=== PATIENT | male | born 1940 | race Caucasian/White ===

== ENCOUNTER 2016-04-29 12:44 | Inpatient (IN) | payer OTHER ==
[~2016-04-29] VITALS: Ht 167.6 cm; Wt 73.4 kg
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
[2016-04-29 13:41] LABS: URINE APPEARANCE CLEAR (CLEAR); URINE BILIRUBIN NEG (NEG); URINE COLOR YELLOW; URINE NITRITE NEG (NEG); URINE SPECIFIC GRAVITY 1.014 (1.000-1.030); UROBILINOGEN NEG (NEG)
[2016-04-29 13:46] LABS: MANUAL MICROSCOPIC REQUIRED? NO; REVIEW REQ? NO
[2016-04-29 13:51] LABS: BASO % 0.5 %; BASO ABS # 0.05 K/uL (0-0.2); COMPLETE YES; EOS % 0.5 %; IG% 0.3 %; LYMPH % 8.4 %; LYMPH ABS # 0.86 K/uL (1.2-3.4); MEAN CELL VOLUME 91.5 fL (80-100); MEAN CORPUSCULAR HGB CONC 36.1 g/dl (32-36); MEAN PLATELET VOLUME 10.5 fL (7.4-10.4); MONO % 10.7 %; NEUT % 79.6 %; PLATELET COUNT 242 K/uL (130-400); RED BLOOD COUNT 5.03 M/uL (4.7-6.1); WHITE BLOOD COUNT 10.24 K/uL (4.8-10.8)
[2016-04-29 14:00] LABS: BENZODIAZEPINE, URINE NEG (NEG); COCAINE,URINE NEG (NEG); PHENCYCLIDINE, URINE NEG (NEG)
[2016-04-29 14:08] LABS: BUN/CREATININE RATIO 11.9 (10-20); CALCIUM 9.7 mg/dl (8.5-10.1); CREATININE 0.98 mg/dl (0.60-1.40); MAGNESIUM 2.2 mg/dl (1.8-2.4); POTASSIUM 3.7 mmol/L (3.5-5.1)
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
[2016-04-29 14:19] LABS: PHOSPHORUS 2.2 mg/dl (2.5-4.9); THYROID STIMULATING HORMONE 1.54 uIu/ml (0.300-4.500)
[2016-04-29] MEDS ORDERED: SODIUM CHLORIDE 0.9% 1000ML 1,000 ML IV STA (14:23)
[2016-04-29] MEDS ORDERED: CLONIDINE HCL 0.1 MG TAB PO ONE (14:30)
--- NOTE | 2016-04-29 14:34 | DIAGNOSTIC IMAGING REPORT ---
CHEST 2 VIEWS ROUTINE CLINICAL HISTORY: Psych eval COMPARISON STUDY: No previous studies for comparison. FINDINGS: Lung volumes are normal. No consolidation is identified. There is no evidence of pulmonary edema edema. Cardiac size is normal. Mediastinal contours are normal. IMPRESSION: No acute cardiopulmonary findings. Electronically signed by: Srinath Wright M.D. 04/29/2016 2:32 PM Dictated Date/Time: 04/29/2016 2:31 PM
[2016-04-29 14:45] LABS: LYME DISEASE AB IGG NEG (NEG)
[2016-04-29 14:46] LABS: LYME DISEASE AB IGM NEG (NEG)
[2016-04-29] MEDS ORDERED: ACETAMINOPHEN 325 MG TAB PO PRN (16:00)
[2016-04-29] MEDS ORDERED: ONDANSETRON INJ 2 MG/ML 2 ML VIAL IV PRN (16:00)
[2016-04-29] MEDS ORDERED: ZOLPIDEM TARTRATE 5 MG TAB PO PRN (16:00)
[2016-04-29] MEDS ORDERED: ACETAMINOPHEN IV 100 ML IV PRN (16:00)
[2016-04-29] MEDS ORDERED: LORAZEPAM 2 MG/ML 1 ML VIAL IV PRN (16:00)
[2016-04-29] MEDS ORDERED: DiphenhydrAMINE HCL 50 MG/ML VIAL IV PRN (16:00)
[2016-04-29 17:25] VITALS: BP 207/98; PULSE 89; TEMP 36.5; O2SAT 98
[2016-04-29] MEDS ORDERED: LORAZEPAM INJ 1 MG in SYRINGE 0.5 ML IV PRN (17:30)
[2016-04-29] MEDS ORDERED: HydrALAZINE HCL 20 MG/ML VIAL IV. PRN (17:45)
[2016-04-29 18:48] VITALS: BP 112/65; PULSE 84; O2SAT 95
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
[2016-04-29 22:10] VITALS: BP 112/65; PULSE 84; TEMP 36.5; O2SAT 95; Ht 167.6 cm; Wt 73.4 kg
[2016-04-30] VITALS: O2SAT 95
[2016-04-30 07:02] LABS: BASO % 0.5 %; BASO ABS # 0.04 K/uL (0-0.2); COMPLETE YES; EOS % 2.2 %; HEMATOCRIT 42.2 % (42-52); IG% 0.1 %; LYMPH % 18.5 %; LYMPH ABS # 1.42 K/uL (1.2-3.4); MEAN CELL VOLUME 91.3 fL (80-100); MEAN CORPUSCULAR HGB CONC 33.9 g/dl (32-36); MEAN PLATELET VOLUME 10.5 fL (7.4-10.4); MONO % 13.3 %; NEUT % 65.4 %; PLATELET COUNT 198 K/uL (130-400); RED BLOOD COUNT 4.62 M/uL (4.7-6.1); WHITE BLOOD COUNT 7.67 K/uL (4.8-10.8)
[2016-04-30 07:16] VITALS: BP 160/80; PULSE 73; TEMP 36.4; O2SAT 97
[2016-04-30 07:32] LABS: BUN/CREATININE RATIO 13.3 (10-20); CALCIUM 8.6 mg/dl (8.5-10.1); CREATININE 0.84 mg/dl (0.60-1.40); MAGNESIUM 2.3 mg/dl (1.8-2.4); POTASSIUM 3.4 mmol/L (3.5-5.1)
[2016-04-30] MEDS ORDERED: POTASSIUM CHLORIDE 10 MEQ TABCR PO STA (07:51)
[2016-04-30] MEDS ORDERED: INFLUENZA ADMINISTRATION CHARGE ONE (08:00)
[2016-04-30] MEDS ORDERED: INFLUENZA VIRUS QUAD VACCINE 0.5 ML SYR IM. ONE (08:00)
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
[2016-04-30 08:47] VITALS: BP 125/66; PULSE 94
[2016-04-30 12:02] VITALS: BP 127/70; PULSE 89; O2SAT 98
--- NOTE | 2016-04-30 14:34 | Psychiatric Progress Notes ---
Psychiatric Progress Note Date of Service Apr 30, 2016. Notes consult dictated Dx: unspecified psychosis; r/o delirium vs underling major neurocognitive disorder A/P: - pt actively hallucinating (complex AH w/ associated paranoid and illogical delusions) - insight/judgement presently impaired. presently lack capacity to make his own medical decisions 2/2 psychosis and cognitive impairment. surrogate decision maker needed. unclear if he is likely to regain capacity. baseline uncertain at present - h/o brain injury w/ evidence of pathology on CT. 2/2 late onset psychosis in this setting, will order bedside EEG to try to r/o temporal lobe seizures as nidus fo psychosis - scored only 1 pt on minicog indicating likely cognitive impairment. visuospatial deficit and construction apraxia evident (executive dysfunction) which suggests cortical dysfunction (possible SDAT given age). - will d/c ambien 2/2 deliriogenic potential - please minimize use of ativan prn - no si/hi or agitation but would consider sitter for now as he is at risk for behavior driven by hallucinations/delusions - start risperdal 0.25mg now and qhs for psychosis acutely - may need dispo to geriatric psychiatric unit pending EEG results and response to risperdal - will need to assess safety of home environment prior to his return. unclear if he is living alone (as he states) or w/ brother as previously reported - will follow Addendum: liaison nurse spoke with daughter and reviewed med recs and possibility of psychiatric inpatient tx and she verbalized consent. i attempted to reach Shahrzad at [phone] but was unable to reach her at 16:20 on 04/30/16
[2016-04-30 15:53] VITALS: BP 132/72; PULSE 82; TEMP 36.5; O2SAT 96
[2016-04-30] MEDS ORDERED: RISPERIDONE 0.5 MG TAB PO ONE (17:00)
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
[2016-04-30] MEDS ORDERED: RISPERIDONE 0.5 MG TAB PO SCH (21:00)
[2016-05-01 06:18] LABS: BASO % 0.4 %; BASO ABS # 0.03 K/uL (0-0.2); COMPLETE YES; EOS % 2.9 %; HEMATOCRIT 40.4 % (42-52); IG% 0.1 %; LYMPH % 20.8 %; LYMPH ABS # 1.42 K/uL (1.2-3.4); MEAN CELL VOLUME 91.6 fL (80-100); MEAN CORPUSCULAR HEMOGLOBIN 31.7 pg (25-34); MEAN CORPUSCULAR HGB CONC 34.7 g/dl (32-36); MEAN PLATELET VOLUME 10.4 fL (7.4-10.4); MONO % 12.7 %; NEUT % 63.1 %; PLATELET COUNT 185 K/uL (130-400); RED BLOOD COUNT 4.41 M/uL (4.7-6.1); WHITE BLOOD COUNT 6.83 K/uL (4.8-10.8)
[2016-05-01 06:26] LABS: ESTIMATED AVERAGE GLUCOSE 97 mg/dl; HA1C FLAG Normal (Normal)
[2016-05-01 06:51] LABS: CALCIUM 8.4 mg/dl (8.5-10.1); CREATININE 0.94 mg/dl (0.60-1.40); MAGNESIUM 2.4 mg/dl (1.8-2.4); POTASSIUM 3.6 mmol/L (3.5-5.1)
[2016-05-01 06:54] LABS: CHOLESTEROL/HDL RATIO 2.3
[2016-05-01 07:11] VITALS: BP 128/76; PULSE 81; TEMP 36.7; O2SAT 97
[2016-05-01] MEDS: LISINOPRIL 2.5 MG TAB PO SCH (07:52)
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
--- NOTE | 2016-05-01 10:46 | EEG Procedure Note ---
EEG Procedure Note Date of Service May 01, 2016. Start / End Times Start Time: 9:28 AM End Time: 9:48 AM Referring Physician Honorio Nazario History This is a 75-year-old male with change in mental status and sudden onset of psychosis. EEG for further evaluation of altered mental status and rule out seizure etiology. Home Medication List No Active Prescriptions or Reported Meds Inpatient Medication List Current Inpatient Medications Medications (Trade) Dose Ordered Sig/Sada Route Start Time Stop Time Status Last Admin Dose Admin Acetaminophen (Tylenol Tab) 650 mg Q4H PRN PO 04/29/16 16:00 05/29/16 15:59 Ondansetron HCl (Zofran Inj) 4 mg Q6H PRN IV 04/29/16 16:00 05/29/16 15:59 Diphenhydramine HCl 50 mg 50 mg Q6H PRN IV 04/29/16 16:00 05/29/16 15:59 Acetaminophen (Ofirmev Iv) 100 ml @ 400 mls/hr Q8H PRN IV 04/29/16 16:00 05/29/16 15:59 Lorazepam 1 mg 1 mg Q4H PRN IV 04/29/16 16:00 05/29/16 15:59 Lorazepam/Syringe (Ativan Inj/ Syringe) 1 ml @ 1 mls/min Q4H PRN IV 04/29/16 17:30 05/29/16 17:29 04/29/16 17:58 1 MLS/MIN Hydralazine HCl (HydrALAZINE INJ) 10 mg Q4H PRN IV. 04/29/16 17:45 05/29/16 17:44 Lisinopril (Zestril Tab) 2.5 mg QAM PO 05/01/16 08:00 05/31/16 07:59 05/01/16 07:52 2.5 MG Risperidone (Risperdal Tab) 0.5 mg HS PO 05/01/16 21:00 05/31/16 20:59 Description This is a 21 electrode EEG with a single channel dedicated to limited EKG. The electrodes were placed in accordance with the International 10-20 system. At the start of the recording the patient was in an awake state. Background was well organized and composed of symmetric mixed alpha and beta frequencies. There was a symmetric well-formed moderate amplitude 9-10 Hz posterior dominant rhythm that was reactive to eye opening and closure. Hyperventilation was not done. Intermittent photic stimulation at various frequencies produced no abnormalities. There was no state changes or sleep transients. Interpretation This is a normal awake only routine EEG. There was no electrographic seizures or epileptiform discharges. Clinical Correlation A normal EEG does not rule out epilepsy if there is a strong clinical suspicion.
[2016-05-01] MEDS ORDERED: RISP0.5T4 PO (14:00)
--- NOTE | 2016-05-01 14:03 | Discharge Instructions ---
Discharge Instructions Admission Reason for Admission: Acute Paranoia; Auditory Hallucinations Discharge Discharge Diagnosis / Problem: Paranoid psychosis, delusional behavior Discharge Goals Goal(s): Improve function, Improve disease control Activity Recommendations Activity Limitations: resume your previous activity Lifting Limitations: none Exercise/Sports Limitations: as tolerated Shower/Bathe: no limitations . Instructions / Follow-Up Instructions / Follow-Up Inpatient psychiatry Current Hospital Diet Patient's current hospital diet: Regular Diet, AHA Diet (Heart Healthy) Discharge Diet Recommended Diet: Regular Diet Procedures Procedures Performed: EEG - normal Pending Studies Studies pending at discharge: no Laboratory Results Hemoglobin A1c Test 04/30/16 06:02 Range/Units Estimated Average Glucose 97 mg/dl Hemoglobin A1c 5.0 4.5-5.6 % Lipid Panel Test 05/01/16 05:45 Range/Units Triglycerides Level 79 0-150 mg/dl Cholesterol Level 177 0-200 mg/dl HDL Cholesterol 77 mg/dl Cholesterol/HDL Ratio 2.3 LDL Cholesterol, Calculated 84 mg/dl Medical Emergencies . Who to Call and When: Medical Emergencies: If at any time you feel your situation is an emergency, please call 911 immediately. . Non-Emergent Contact Non-Emergency issues call your: Primary Care Provider Call Non-Emergent contact if: you have any medication questions . . "Provider Documentation" section prepared by Asif Powell. VTE Core Measure Inpt VTE Proph given/why not?: SCD's
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
[2016-05-01 14:13] VITALS: BP_SYST 116; BP_SYST 128; BP_DIAS 73; BP_DIAS 76; PULSE 78; PULSE 81; TEMP 36.5; TEMP 36.7; O2SAT 97; O2SAT 99
[2016-05-01] MEDS ORDERED: RISPERIDONE 0.5 MG TAB PO SCH (21:00)
[2016-05-01 23:20] VITALS: BP 148/78; PULSE 79; TEMP 36.4; O2SAT 97
[2016-05-02 06:22] LABS: BASO % 0.4 %; BASO ABS # 0.03 K/uL (0-0.2); COMPLETE YES; EOS % 2.7 %; HEMATOCRIT 39.9 % (42-52); IG% 0.3 %; LYMPH % 13.4 %; LYMPH ABS # 0.95 K/uL (1.2-3.4); MEAN CELL VOLUME 92.4 fL (80-100); MEAN CORPUSCULAR HEMOGLOBIN 32.2 pg (25-34); MEAN CORPUSCULAR HGB CONC 34.8 g/dl (32-36); MEAN PLATELET VOLUME 10.1 fL (7.4-10.4); MONO % 11.8 %; NEUT % 71.4 %; PLATELET COUNT 179 K/uL (130-400); RED BLOOD COUNT 4.32 M/uL (4.7-6.1); WHITE BLOOD COUNT 7.09 K/uL (4.8-10.8)
[2016-05-02 06:55] LABS: CALCIUM 8.6 mg/dl (8.5-10.1); CREATININE 0.83 mg/dl (0.60-1.40); MAGNESIUM 2.3 mg/dl (1.8-2.4); POTASSIUM 3.5 mmol/L (3.5-5.1)
[2016-05-02 07:06] VITALS: BP 116/73; PULSE 78; TEMP 36.5; O2SAT 99
[2016-05-02] MEDS: LISINOPRIL 2.5 MG TAB PO SCH (07:57)
== END 2016-05-02 12:00 | DRG 885 ==
LOC: ENRESERVDT → ENRESERVTM → C.EDB 12:45 → C.4E 15:56
PROVIDERS: ADMIT Hospitalist; ATTEND Internal Medicine
DX: F22 Delusional disorders (principal); R03.0 Elevated blood-pressure reading, without diagnosis of hypertension; Z87.828 Personal history of other (healed) physical injury and trauma

== ENCOUNTER 2016-07-14 18:21 | Emergency (ER) | payer OTHER ==
[~2016-07-14] VITALS: Ht 167.6 cm; Wt 69.4 kg
[~2016-07-14 18:21] MED LIST: RISP0.5T4 PO
[2016-07-14 18:24] VITALS: TEMP 36.9; Ht 167.6 cm; Wt 69.4 kg
[2016-07-14] MEDS ORDERED: FAMO20TA11 PO (18:31)
[2016-07-14 18:55] LABS: MANUAL MICROSCOPIC REQUIRED? NO; REVIEW REQ? NO; URINE APPEARANCE CLEAR (CLEAR); URINE COLOR DK YELLOW; URINE NITRITE NEG (NEG); URINE PH 5.5 (4.5-7.5); URINE SPECIFIC GRAVITY 1.032 (1.000-1.030); UROBILINOGEN NEG (NEG)
[2016-07-14 18:57] LABS: URINE BILIRUBIN NEG (NEG)
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
[2016-07-14 20:06] LABS: ACETAMINOPHEN < 2 ug/ml (10-30)
[2016-07-14 20:23] LABS: BASO % 0.4 %; BASO ABS # 0.03 K/uL (0-0.2); COMPLETE YES; EOS % 3.5 %; IG% 0.3 %; LYMPH % 19.2 %; LYMPH ABS # 1.39 K/uL (1.2-3.4); MEAN CELL VOLUME 90.5 fL (80-100); MEAN CORPUSCULAR HEMOGLOBIN 32.2 pg (25-34); MEAN CORPUSCULAR HGB CONC 35.6 g/dl (32-36); MEAN PLATELET VOLUME 10.2 fL (7.4-10.4); MONO % 11.9 %; NEUT % 64.7 %; PLATELET COUNT 176 K/uL (130-400); RED BLOOD COUNT 3.98 M/uL (4.7-6.1); WHITE BLOOD COUNT 7.23 K/uL (4.8-10.8)
[2016-07-14 20:32] LABS: INR 1.1 (0.9-1.1)
[2016-07-14 20:42] LABS: BLOOD UREA NITROGEN 25 mg/dl (7-18); BUN/CREATININE RATIO 20.4 (10-20); CALCIUM 8.5 mg/dl (8.5-10.1); CARBON DIOXIDE 25 mmol/L (21-32); CHLORIDE 111 mmol/L (98-107); GLUCOSE 107 mg/dl (70-99); POTASSIUM 3.5 mmol/L (3.5-5.1); SODIUM 144 mmol/L (136-145)
[2016-07-14 20:53] LABS: ALKALINE PHOSPHATASE 72 U/L (45-117); ALT/SGPT 21 U/L (12-78); AST/SGOT 21 U/L (15-37)
[2016-07-14 21:51] LABS: BENZODIAZEPINE, URINE NEG (NEG); COCAINE,URINE NEG (NEG); PHENCYCLIDINE, URINE NEG (NEG)
[2016-07-14] MEDS ORDERED: HALOPERIDOL LACTATE 5 MG/ML 1 ML VIAL ONE (22:07)
[2016-07-14] MEDS ORDERED: LORAZEPAM 2 MG/ML 1 ML VIAL ONE (22:07)
[2016-07-14] MEDS ORDERED: LORAZEPAM 2 MG/ML 1 ML VIAL IM STA (22:09)
[2016-07-14] MEDS ORDERED: HALOPERIDOL LACTATE 5 MG/ML 1 ML VIAL IM STA (22:09)
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
[2016-07-15 00:17] VITALS: BP 136/56; PULSE 55; O2SAT 97
== END 2016-07-15 00:53 ==
LOC: C.EDB 18:22 → C.EDA 07-15 00:53
DX: F29 Unspecified psychosis not due to a substance or known physiological condition (principal); D64.9 Anemia, unspecified; Z87.891 Personal history of nicotine dependence

== ENCOUNTER 2017-03-11 09:15 | Inpatient (IN) | payer OTHER ==
[~2017-03-11] VITALS: Ht 167.6 cm; Wt 60.5 kg
[~2017-03-11 09:15] MED LIST changes: +FAMO20TA11 PO; -RISP0.5T4 PO
[2017-03-11] MEDS ORDERED: CYAN500T13 PO (10:03)
[2017-03-11] MEDS ORDERED: RISP4TAB7 PO (10:03)
[2017-03-11] MEDS ORDERED: MGCL40 PO (10:03)
[2017-03-11] MEDS ORDERED: SERT50TA PO (10:03)
[2017-03-11] MEDS ORDERED: CHOL1CAP57 PO (10:03)
[2017-03-11] MEDS ORDERED: ACET-1311 PO (10:03)
[2017-03-11 10:07] LABS: HEMATOCRIT 38.6 % (42-52); MEAN CELL VOLUME 90.2 fL (80-100); MEAN CORPUSCULAR HEMOGLOBIN 30.4 pg (25-34); MEAN CORPUSCULAR HGB CONC 33.7 g/dl (32-36); PLATELET COUNT 174 K/uL (130-400); RED BLOOD COUNT 4.28 M/uL (4.7-6.1); WHITE BLOOD COUNT 14.11 K/uL (4.8-10.8)
[2017-03-11 10:24] LABS: CALCIUM 9.4 mg/dl (8.5-10.1); CREATININE 1.26 mg/dl (0.60-1.40); POTASSIUM 3.8 mmol/L (3.5-5.1)
--- NOTE | 2017-03-11 10:27 | DIAGNOSTIC IMAGING REPORT ---
CT SCAN OF THE ABDOMEN AND PELVIS WITHOUT CONTRAST CLINICAL HISTORY: Abdominal pain and diarrhea COMPARISON STUDY: No previous studies for comparison. TECHNIQUE: CT scan of the abdomen and pelvis was performed from the lung bases to the proximal femurs. Images are reviewed in the axial, sagittal, and coronal planes. IV contrast was not administered for this examination. A dose lowering technique was utilized adhering to the principles of ALARA. CT DOSE: 422.72 mGy.cm FINDINGS: Lower chest: There are mild basilar atelectatic changes. There is a minimal pericardial effusion. Liver: There are 3 low-density hepatic masses measuring 17 mm, 25 mm, and 17 mm respectively. These approach water attenuation likely represent cysts. Gallbladder: Unremarkable. Spleen: Normal in size and attenuation. Pancreas: Unremarkable. Adrenal glands: There is mild bilateral adrenal gland thickening Kidneys: There are bilateral punctate intrarenal calculi. There is no hydronephrosis. No ureteral calculi are visualized. There is a 12 mm hyperdense right renal mass likely representing a hyperdense cyst. Bowel: There is a small hiatal hernia. There are no transition zones indicate bowel obstruction. The appendix is surgically absent. There is colonic interposition. There is no acute diverticulitis. There is fecal retention. The rectum is distended measuring 7.9 cm. Peritoneum: There is no intraperitoneal free air or abdominal ascites. Vasculature: Atheromatous changes are present within the aorta and iliac vessels. There is calcified mural thrombus within the abdominal aorta versus a small short segment chronic dissection. Adenopathy: None. Pelvic viscera: The bladder, and pelvic viscera are unremarkable. Skeletal structures: No destructive osseous lesions are seen. IMPRESSION: 1. No evidence of bowel obstruction. No evidence of free air 2. Fecal retention suggesting underlying constipation. There is a stool-filled distended rectum measuring 7.9 cm in diameter 3. No evidence of acute diverticulitis 4. Bilateral nephrolithiasis. No ureteral or bladder calculi identified. Electronically signed by: Stiven Jones M.D. 03/11/2017 10:25 AM Dictated Date/Time: 03/11/2017 10:19 AM
[2017-03-11 10:55] LABS: BASO % 0.2 %; BASO ABS # 0.03 K/uL (0-0.2); COMPLETE YES; EOS % 0.8 %; IG% 0.6 %; LYMPH % 8.4 %; LYMPH ABS # 1.19 K/uL (1.2-3.4); MONO % 10.3 %; NEUT % 79.7 %; POIKILOCYTOSIS PRESENT
--- NOTE | 2017-03-11 10:59 | EMERGENCY ROOM VISIT NOTE ---
History Report prepared by Dylan: Cecilia Salomon Under the Supervision of: Dr. Marcelino Christianson M.D. First contact with patient: 09:38 Chief Complaint: DIARRHEA Stated Complaint: DIARRHEA Nursing Triage Summary: Pt presents to room b05 via ambulance from [facility] in [place]. Pt has had diarrhea since Sunday. Pt had previously had constipation and saw his PCP on Sunday. History of Present Illness The patient is a 76 year old male who presents to the Emergency Room with complaints of constant diarrhea occurring yesterday. He denies blood in his stool. He denies taking medications for his loose stool. The patient reports that he saw a doctor on Sunday for a check-up, but denies having problems on Sunday. The patient states that he has had a problem with both constipation and loose stool in the past. He states that he had constipation last week but that he did not take medication for it. He denies having rectal pain, but states that it is sore from defecating so much. He states that he has been eating and drinking normally. Pt denies LOC, headache, fevers, chills, diaphoresis, visual changes, neck pain, chest pain, breathing difficulties, nausea, vomiting, abdominal pain, back pain, melena, hematochezia , numbness, weakness, lymphadenopathy, rash, or other complaints. Source of History: patient Onset: yesterday Position: other (global) Quality: other (diarrhea) Timing: constant Associated Symptoms: No fevers Review of Systems See HPI for pertinent positives and negatives. A total of ten systems were reviewed and were otherwise negative. Past Medical & Surgical Medical Problems: (1) Acute paranoia (2) Auditory hallucinations (3) Declining functional status Family History Patient reports no known family medical history. Social History Smoking Status: Unknown if Ever Smoked Drug Use: none Marital Status: single Occupation Status: retired Current/Historical Medications Scheduled Cholecalciferol (Vitamin D3), 1,000 UNITS PO DAILY Cyanocobalamin (Vitamin B12 500MCG), 1,000 MCG PO DAILY Megestrol Acetate (Megestrol Acetate), 10 ML PO BID Risperidone (Risperdal), 4 MG PO HS Sertraline (Zoloft), 50 MG PO DAILY Scheduled PRN Acetaminophen (Tylenol), 650 MG PO Q4 PRN for Pain Famotidine (Pepcid), 20 MG PO DAILY PRN for PRN Allergies Coded Allergies: No Known Allergies (Unverified , 03/11/17) Physical Exam Vital Signs Date Time Temp Pulse Resp B/P (MAP) Pulse Ox O2 Delivery O2 Flow Rate FiO2 03/11/17 15:17 69 12 158/72 97 Room Air 03/11/17 14:25 73 03/11/17 13:00 74 122/72 98 Room Air 03/11/17 11:56 67 134/76 96 Room Air 03/11/17 10:36 65 18 132/68 97 Room Air 03/11/17 09:32 97 Room Air 03/11/17 09:26 36.8 77 20 122/56 97 Room Air 03/11/17 09:21 66 Physical Exam GENERAL: Awake, alert, tired-appearing, in no distress HENT: Normocephalic, atraumatic. Oropharynx unremarkable. Dry mucous membranes. EYES: Normal conjunctiva. Sclera non-icteric. NECK: Supple. No nuchal rigidity. FROM. No JVD. RESPIRATORY: Clear to auscultation. CARDIAC: Regular rate, normal rhythm. Extremities warm and well perfused. Pulses equal. ABDOMEN: Soft, non-distended. Right lower quadrant tenderness. No rebound or guarding. No masses. RECTAL: Loose brown stool but no impaction noted. MUSCULOSKELETAL: Chest examination reveals no tenderness. The back is symmetrical on inspection without obvious abnormality. There is no CVA tenderness to palpation. No joint edema. LOWER EXTREMITIES: Calves are equal size bilaterally and non-tender. No edema. No discoloration. NEURO: Normal sensorium. No sensory or motor deficits noted. SKIN: No rash or jaundice noted. Medical Decision & Procedures ER Provider Diagnostic Interpretation: Radiology results as stated below per my review and radiologist interpretation: CT SCAN OF THE ABDOMEN AND PELVIS WITHOUT CONTRAST CLINICAL HISTORY: Abdominal pain and diarrhea COMPARISON STUDY: No previous studies for comparison. TECHNIQUE: CT scan of the abdomen and pelvis was performed from the lung bases to the proximal femurs. Images are reviewed in the axial, sagittal, and coronal planes. IV contrast was not administered for this examination. A dose lowering technique was utilized adhering to the principles of ALARA. CT DOSE: 422.72 mGy.cm FINDINGS: Lower chest: There are mild basilar atelectatic changes. There is a minimal pericardial effusion. Liver: There are 3 low-density hepatic masses measuring 17 mm, 25 mm, and 17 mm respectively. These approach water attenuation likely represent cysts. Gallbladder: Unremarkable. Spleen: Normal in size and attenuation. Pancreas: Unremarkable. Adrenal glands: There is mild bilateral adrenal gland thickening Kidneys: There are bilateral punctate intrarenal calculi. There is no hydronephrosis. No ureteral calculi are visualized. There is a 12 mm hyperdense right renal mass likely representing a hyperdense cyst. Bowel: There is a small hiatal hernia. There are no transition zones indicate bowel obstruction. The appendix is surgically absent. There is colonic interposition. There is no acute diverticulitis. There is fecal retention. The rectum is distended measuring 7.9 cm. Peritoneum: There is no intraperitoneal free air or abdominal ascites. Vasculature: Atheromatous changes are present within the aorta and iliac vessels. There is calcified mural thrombus within the abdominal aorta versus a small short segment chronic dissection. Adenopathy: None. Pelvic viscera: The bladder, and pelvic viscera are unremarkable. Skeletal structures: No destructive osseous lesions are seen. IMPRESSION: 1. No evidence of bowel obstruction. No evidence of free air 2. Fecal retention suggesting underlying constipation. There is a stool-filled distended rectum measuring 7.9 cm in diameter 3. No evidence of acute diverticulitis 4. Bilateral nephrolithiasis. No ureteral or bladder calculi identified. Electronically signed by: Stiven Jones M.D. 03/11/2017 10:25 AM Dictated Date/Time: 03/11/2017 10:19 AM Laboratory Results 03/11/17 09:50 Red Blood Count 4.28, Mean Corpuscular Volume 90.2, Mean Corpuscular Hemoglobin 30.4, Mean Corpuscular Hemoglobin Concent 33.7, Mean Platelet Volume 11.0, Neutrophils (%) (Auto) 79.7, Lymphocytes (%) (Auto) 8.4, Monocytes (%) (Auto) 10.3, Eosinophils (%) (Auto) 0.8, Basophils (%) (Auto) 0.2, Neutrophils # (Auto ) 11.24, Lymphocytes # (Auto) 1.19, Monocytes # (Auto) 1.46, Eosinophils # (Auto ) 0.11, Basophils # (Auto) 0.03 03/11/17 09:50 Test 03/11/17 09:50 White Blood Count 14.11 K/uL (4.8-10.8) Red Blood Count 4.28 M/uL (4.7-6.1) Hemoglobin 13.0 g/dL (14.0-18.0) Hematocrit 38.6 % (42-52) Mean Corpuscular Volume 90.2 fL (80-100) Mean Corpuscular Hemoglobin 30.4 pg (25-34) Mean Corpuscular Hemoglobin Concent 33.7 g/dl (32-36) Platelet Count 174 K/uL (130-400) Mean Platelet Volume 11.0 fL (7.4-10.4) Neutrophils (%) (Auto) 79.7 % Lymphocytes (%) (Auto) 8.4 % Monocytes (%) (Auto) 10.3 % Eosinophils (%) (Auto) 0.8 % Basophils (%) (Auto) 0.2 % Neutrophils # (Auto) 11.24 K/uL (1.4-6.5) Lymphocytes # (Auto) 1.19 K/uL (1.2-3.4) Monocytes # (Auto) 1.46 K/uL (0.11-0.59) Eosinophils # (Auto) 0.11 K/uL (0-0.5) Basophils # (Auto) 0.03 K/uL (0-0.2) RDW Standard Deviation 43.7 fL (36.4-46.3) RDW Coefficient of Variation 13.3 % (11.5-14.5) Immature Granulocyte % (Auto) 0.6 % Immature Granulocyte # (Auto) 0.08 K/uL (0.00-0.02) Poikilocytosis PRESENT Anion Gap 12.0 mmol/L (3-11) Est Creatinine Clear Calc Drug Dose 42.7 ml/min Estimated GFR () 63.8 Estimated GFR (Non- 55.0 BUN/Creatinine Ratio 21.0 (10-20) Calcium Level 9.4 mg/dl (8.5-10.1) Total Bilirubin 0.9 mg/dl (0.2-1) Direct Bilirubin 0.2 mg/dl (0-0.2) Aspartate Amino Transf (AST/SGOT) 11 U/L (15-37) Alanine Aminotransferase (ALT/SGPT) 9 U/L (12-78) Alkaline Phosphatase 76 U/L (45-117) Total Protein 6.0 gm/dl (6.4-8.2) Albumin 3.1 gm/dl (3.4-5.0) Lipase 91 U/L (73-393) Date/Time Source Procedure Growth Status 03/11/17 11:55 Stool C.difficile Toxin B Gene (PCR) - Final No C. difficile toxin B gene detected Complete Laboratory results reviewed by me Medications Administered Medications (Trade) Dose Ordered Sig/Sada Route Start Time Stop Time Status Last Admin Dose Admin Sodium Chloride 1,000 ml @ 999 mls/hr Q1H1M STAT IV 03/11/17 14:51 03/11/17 15:51 DC 03/11/17 14:51 999 MLS/HR ED Course 0950: The patient was evaluated in room B5. A complete history and physical exam was performed. 1435: I updated the patient and talked to his daughter who said that he is dwindling, not taking his medication, not eating, and losing weight. 1451: Ordered Sodium Chloride 1,000 ml @ 999 mls/hr IV. 1534: Discussed the patient's case with Dr. Tovar. The patient will be evaluated for further treatment and disposition. 1537: Upon reexamination, the patient was resting. I discussed the test results and treatment plan with him. The patient will be evaluated for further management. Medical Decision Triage Nursing notes reviewed. The patient's presentation and history were concerning for diarrhea. Etiologies such as enteritis, food borne illness, infections, obstruction, pancreatitis, appendicitis, diverticulitis, inflammatory bowel disease, C. difficile infection, constipation, GI bleed, as well as others were entertained. Patient was evaluated. He was tired-appearing but nontoxic. He had minimal right lower quadrant tenderness on examination. Blood work revealed a mild elevation of his white blood cell count. He had stool studies ordered. He was sent for CT imaging given the loose stools and right lower tenderness. He was found to have significant constipation. I suspect that he is having loose stools leaking around the impaction. An enema was ordered. The patient did well with this. Rectal examination did not reveal any evidence of impaction. The patient was hydrated. The patient's daughter arrived and I discussed the case. He has been dwindling quite rapidly on losing weight. He has not eating or taking his medications. He has had a limited assistance personal alf. C. difficile testing was negative. Stool culture is pending. I discussed the case with the case specialist. He did meet with the patient's daughter. Further management in the hospital was recommended. Consultation was made with internal medicine. The patient was evaluated. Medication Reconcilliation Current Medication List: was personally reviewed by me Blood Pressure Screening Patient's blood pressure: Elevated blood pressure will be monitored by hospitalist Consults Time Called: 1510 Consulting Physician: Dr. Tovar-Mt. Carpenter Returned Call: [phone] Discussed the patient's case. The patient will be evaluated for further treatment and disposition. Impression Primary Impression: Diarrheal disease Additional Impressions: Weakness Failure to thrive Scribe Attestation The scribe's documentation has been prepared under my direction and personally reviewed by me in its entirety. I confirm that the note above accurately reflects all work, treatment, procedures, and medical decision making performed by me. Departure Information Dispostion Being Evaluated By Hospitalist Referrals No Doctor, Assigned (PCP) Patient Instructions My [facility] Problem Qualifiers
[2017-03-11] MEDS ORDERED: SODIUM CHLORIDE 0.9% 1000ML 1,000 ML IV STA (14:51)
[2017-03-11] MEDS ORDERED: FAMOTIDINE 20 MG TAB PO PRN (16:00)
[2017-03-11] MEDS ORDERED: MAGNESIUM HYDROXIDE SUSP 30 ML UDC PO PRN (16:00)
[2017-03-11] MEDS ORDERED: LORAZEPAM 0.5 MG TAB PO PRN (16:00)
[2017-03-11] MEDS ORDERED: LORAZEPAM 2 MG/ML 1 ML VIAL IV PRN ×2 (16:00)
[2017-03-11] MEDS ORDERED: ALUMINUM/MAGNESIUM/SIMETH (MAALOX MAX) 30 ML UDC PO PRN (16:00)
[2017-03-11] MEDS ORDERED: ONDANSETRON INJ 2 MG/ML 2 ML VIAL IV PRN (16:00)
--- NOTE | 2017-03-11 16:29 | History and Physical ---
History & Physical Date & Time of Service: Mar 11, 2017 at 16:23 Chief Complaint: Diarrhea Primary Care Physician: No Doctor, Assigned History of Present Illness 76-year-old male presents to the ER with diarrhea from personal fci poorly the patient is not happy at the personal fci he's had decreased oral intake. In the ER is found to have a large rectal stool bolus which was removed with enema. Remainder of his evaluation including CT scan abdomen and pelvis CBC and chemistry panel were unremarkable with exception of a mild leukocytosis infectious studies including C. difficile are negative remaining studies are pending at time of presentation patient had mild elevation of BUN/ creatinine are 26 and 1.2. Patient has come pain by his niece, this patient had been our facility April 2016 he was living with his brother when he began having hallucinations and was brought in by police during that admission he had metabolic causes were ruled out and was eventually discharged to inpatient psych facility and then subsequent from that facility to a personal fci. The niece states that he has been belligerent and Mrs. strange from most of his family members he cannot return to his former living situation and he has a significant history of alcohol abuse in the past. This niece is his POA both she and the patient are in agreement at the time of presentation but they would like him to be transition to a higher level of care for more support is offered such as a assisted facility. Family History Patient reports no known family medical history. Social History Smoking Status: Unknown if Ever Smoked Smokeless Tobacco Use: No Alcohol Use: heavy (has quit for last few years) Drug Use: none Marital Status: single Housing status: lives alone Occupational Status: retired Multi-Drug Resistant Organisms History of MDRO: No Allergies Coded Allergies: No Known Allergies (Unverified , 03/11/17) Home Medications Scheduled Cholecalciferol (Vitamin D3), 1,000 UNITS PO DAILY Cyanocobalamin (Vitamin B12 500MCG), 1,000 MCG PO DAILY Megestrol Acetate (Megestrol Acetate), 10 ML PO BID Risperidone (Risperdal), 4 MG PO HS Sertraline (Zoloft), 50 MG PO DAILY Scheduled PRN Acetaminophen (Tylenol), 650 MG PO Q4 PRN for Pain Famotidine (Pepcid), 20 MG PO DAILY PRN for PRN Review of Systems ROS: Reportedly has had weight loss the niece cannot document the amount No double vision blurry vision No problems with speech or swallowing No palpitations, chest pain or pressure No Wheezing or breathing issues No abdominal pain nausea vomiting has had some diarrhea has had marked decreased in appetite and weight No burning urine urine frequency or changes in color No focal joint pain or muscle pain No skin rashes or oral lesions No unusual bruising or bleeding No focused back pain or numbness or loss of strength There are concerns for decreased memory and mild confusion Physical Exam Vital Signs Date Time Temp Pulse Resp B/P (MAP) Pulse Ox O2 Delivery O2 Flow Rate FiO2 03/11/17 15:17 69 12 158/72 97 Room Air 03/11/17 14:25 73 03/11/17 13:00 74 122/72 98 Room Air 03/11/17 11:56 67 134/76 96 Room Air 03/11/17 10:36 65 18 132/68 97 Room Air 03/11/17 09:32 97 Room Air 03/11/17 09:26 36.8 77 20 122/56 97 Room Air 03/11/17 09:21 66 General Appearance: no apparent distress, + thin Head: normocephalic, atraumatic Eyes: PERRL, EOMI ENT: + pertinent finding (oral thrush is noted) Neck: supple, no JVD Respiratory/Chest: chest non-tender, lungs clear, normal breath sounds Cardiovascular: regular rate, rhythm, no murmur Abdomen/GI: normal bowel sounds, non tender, soft Back: no CVA tenderness, no muscle spasm, normal range of motion Extremities/Musculoskelatal: normal inspection, no pedal edema, normal range of motion Neurologic/Psych: alert, oriented x 3 (this was answered appropriately) Skin: normal color, warm/dry, no rash Diagnostics Laboratory Results Results Past 24 Hours Test 03/11/17 09:50 Range/Units White Blood Count 14.11 4.8-10.8 K/uL Red Blood Count 4.28 4.7-6.1 M/uL Hemoglobin 13.0 14.0-18.0 g/dL Hematocrit 38.6 42-52 % Mean Corpuscular Volume 90.2 80-100 fL Mean Corpuscular Hemoglobin 30.4 25-34 pg Mean Corpuscular Hemoglobin Concent 33.7 32-36 g/dl Platelet Count 174 130-400 K/uL Mean Platelet Volume 11.0 7.4-10.4 fL Neutrophils (%) (Auto) 79.7 % Lymphocytes (%) (Auto) 8.4 % Monocytes (%) (Auto) 10.3 % Eosinophils (%) (Auto) 0.8 % Basophils (%) (Auto) 0.2 % Neutrophils # (Auto) 11.24 1.4-6.5 K/uL Lymphocytes # (Auto) 1.19 1.2-3.4 K/uL Monocytes # (Auto) 1.46 0.11-0.59 K/uL Eosinophils # (Auto) 0.11 0-0.5 K/uL Basophils # (Auto) 0.03 0-0.2 K/uL RDW Standard Deviation 43.7 36.4-46.3 fL RDW Coefficient of Variation 13.3 11.5-14.5 % Immature Granulocyte % (Auto) 0.6 % Immature Granulocyte # (Auto) 0.08 0.00-0.02 K/uL Poikilocytosis PRESENT Sodium Level 142 136-145 mmol/L Potassium Level 3.8 3.5-5.1 mmol/L Chloride Level 109 98-107 mmol/L Carbon Dioxide Level 21 21-32 mmol/L Anion Gap 12.0 3-11 mmol/L Blood Urea Nitrogen 26 7-18 mg/dl Creatinine 1.26 0.60-1.40 mg/dl Est Creatinine Clear Calc Drug Dose 42.7 ml/min Estimated GFR () 63.8 Estimated GFR (Non- 55.0 BUN/Creatinine Ratio 21.0 10-20 Random Glucose 93 70-99 mg/dl Calcium Level 9.4 8.5-10.1 mg/dl Total Bilirubin 0.9 0.2-1 mg/dl Direct Bilirubin 0.2 0-0.2 mg/dl Aspartate Amino Transf (AST/SGOT) 11 15-37 U/L Alanine Aminotransferase (ALT/SGPT) 9 12-78 U/L Alkaline Phosphatase 76 45-117 U/L Total Protein 6.0 6.4-8.2 gm/dl Albumin 3.1 3.4-5.0 gm/dl Lipase 91 73-393 U/L Microbiology Results 03/11/17 C.difficile Toxin B Gene (PCR) - Final, Complete No C. difficile toxin B gene detected 03/11/17 Shiga Toxin Test, Received Pending 03/11/17 Stool Culture, Received Pending Diagnostic Radiology CT scan abdomen and pelvis showed the almost 8 cm stool ball in his rectum otherwise no significant intra-abdominal pathology was noted chest x-ray pending at time of presentation Impression Assessment and Plan 76-year-old male previously should call abuse and psychosis who presents for personal fci with functional decline family's request for assisted facility consideration Physical therapy occupational therapy and speech therapy evaluate the patient perform calorie counts with changes appetite stimulant from Megace to Marinol, patient has signs of clinical dehydration was given 1 L of fluid in the ER and will have an additional liter of fluid once on the floor For his psychosis will continue his Risperdal and his Zoloft for his depression DVT prevention is heparin For oral thrush will employ nystatin swish and swallow as Case management will need to work on the patient I'm concerned this patient will be a target process the nieces of where the possibility this may take more than a few days VTE Prophylaxis VTE Risk Assessment Done? Y/N: Yes Risk Level: Moderate
[2017-03-11] MEDS ORDERED: SODIUM CHLORIDE 0.9% 1000ML 1,000 ML IV SCH (16:30)
[2017-03-11] MEDS ORDERED: IV FLUIDS COMPLETED PRN (17:00)
[2017-03-11 17:17] VITALS: BP 126/55; TEMP 36.8; Ht 167.6 cm; Wt 60.5 kg
[2017-03-11] MEDS ORDERED: LORAZEPAM INJ 1 MG in SYRINGE 0.5 ML IV PRN (17:45)
[2017-03-11] MEDS ORDERED: LORAZEPAM INJ 0.5 MG in SYRINGE 0.75 ML IV PRN (17:45)
[2017-03-11 18:24] LABS: INR 1.2 (0.9-1.1); PROTHROMBIN TIME (PATIENT) 12.5 SECONDS (9.0-12.0)
[2017-03-11] MEDS ORDERED: PNEUMOCOCCAL POLYSACCHARIDES 25 MCG/0.5 ML VIAL/SYR IM. ONE (18:45)
[2017-03-11] MEDS ORDERED: PNEUMOCOCCAL ADMINISTRATION CHARGE ONE (18:45)
[2017-03-11] MEDS: NYSTATIN SUSP 500,000 U/5 ML UDC PO SCH ×2 (19:40→21:01)
[2017-03-11] MEDS: DOCUSATE SODIUM 100 MG CAP PO SCH (21:00)
[2017-03-11] MEDS ORDERED: MEGESTROL ACETATE SUSP 400 MG/10 ML UDC PO SCH (21:00)
[2017-03-11] MEDS: RISPERIDONE 2 MG TAB PO SCH (21:01)
[2017-03-11] MEDS: HEPARIN SOD 5000 UNIT/0.5 ML CARP SQ SCH (21:09)
--- NOTE | 2017-03-11 22:55 | DIAGNOSTIC IMAGING REPORT ---
CHEST 2 VIEWS ROUTINE HISTORY: eval for weight loss COMPARISON: Chest 04/29/2016. FINDINGS: The lungs are clear. Cardiac silhouette is normal in size. No pleural effusions. No pneumothorax. Partially visualized gas-filled borderline distended bowel seen within the upper abdomen. This remains unchanged. IMPRESSION: No significant change compared to the prior study. No acute process. Electronically signed by: Willis Sandoval M.D. 03/11/2017 10:54 PM Dictated Date/Time: 03/11/2017 9:46 PM
[2017-03-11 23:44] VITALS: BP 129/66; PULSE 66; TEMP 36.9; O2SAT 96
[2017-03-11 23:50] LABS: URINE APPEARANCE CLEAR (CLEAR); URINE COLOR DK YELLOW; URINE NITRITE NEG (NEG); URINE SPECIFIC GRAVITY 1.024 (1.000-1.030); UROBILINOGEN NEG (NEG); ZZUR CULT IF INDIC CLEAN CATCH NO
[2017-03-11 23:58] LABS: MANUAL MICROSCOPIC REQUIRED? NO; REVIEW REQ? NO; URINE BILIRUBIN NEG (NEG)
[2017-03-12] MEDS: HEPARIN SOD 5000 UNIT/0.5 ML CARP SQ SCH ×3 (05:46→21:08)
[2017-03-12 07:13] VITALS: BP 127/64; PULSE 62; TEMP 36.4; O2SAT 98
[2017-03-12 07:23] LABS: HEMATOCRIT 32.6 % (42-52); MEAN CELL VOLUME 89.6 fL (80-100); MEAN CORPUSCULAR HEMOGLOBIN 29.9 pg (25-34); MEAN CORPUSCULAR HGB CONC 33.4 g/dl (32-36); MEAN PLATELET VOLUME 10.7 fL (7.4-10.4); PLATELET COUNT 160 K/uL (130-400); RED BLOOD COUNT 3.64 M/uL (4.7-6.1); WHITE BLOOD COUNT 8.62 K/uL (4.8-10.8)
[2017-03-12 07:39] VITALS: BP 127/64; PULSE 62; TEMP 36.4; O2SAT 98
[2017-03-12 07:51] LABS: BUN/CREATININE RATIO 23.7 (10-20); CALCIUM 8.1 mg/dl (8.5-10.1); CREATININE 0.91 mg/dl (0.60-1.40); POTASSIUM 3.4 mmol/L (3.5-5.1)
[2017-03-12] MEDS: DRONABINOL 2.5 MG CAP PO SCH (08:23)
[2017-03-12] MEDS: SERTRALINE HCL 50 MG TAB PO SCH (08:24)
[2017-03-12] MEDS: NYSTATIN SUSP 500,000 U/5 ML UDC PO SCH ×4 (08:24→21:06)
[2017-03-12] MEDS: DOCUSATE SODIUM 100 MG CAP PO SCH ×2 (08:25→21:00)
--- NOTE | 2017-03-12 13:23 | Hospitalist Progress Note ---
Hospitalist Progress Note Date of Service Mar 12, 2017. (Karina Palacios PA-C) Subjective Pt evaluation today including: conversation w/ patient, physical exam, chart review, lab review, review of studies Pain: none PO Intake: Fair Voiding: padron catheter in place The patient was seen and examined this afternoon. He denies any acute complaints. Pts affect is very flat and he does not elaborate on any questions. Pt notes he does not necessarily like the personal mcc he currently resides in. He has a room mate which is so-so. He reports a diminished appetite, but no difficulty with swallowing, early satiety or food sticking in the esophagus. He reports typically weighing 156 lbs, and on our records he weighs only 133lbs. Pt was up and working with PT and OT. He reports walking this morning but does not know how well he did. Pt reports ambulating without assistance at baseline. ROS: 6 point ROS reviewed and otherwise negative. (Karina Palacios PA-C) Objective Vital Signs Date Time Temp Pulse Resp B/P (MAP) Pulse Ox O2 Delivery O2 Flow Rate FiO2 03/12/17 08:00 Room Air 03/12/17 07:39 36.4 62 17 127/64 (85) 98 Room Air 03/12/17 07:13 36.4 62 17 127/64 (85) 98 Room Air 03/12/17 00:00 Room Air 03/11/17 23:44 36.9 66 18 129/66 (87) 96 Room Air 03/11/17 20:00 Room Air 03/11/17 17:17 36.8 12 126/55 Room Air 03/11/17 16:55 76 126/55 98 03/11/17 15:17 69 12 158/72 97 Room Air 03/11/17 14:25 73 (Karina Palacios PA-C) Physical Exam General Appearance: WD/WN, no apparent distress, + thin, + pertinent finding ( flat affect ) Eyes: PERRL, EOMI ENT: hearing grossly normal, + pertinent finding (+ thrush) Neck: supple, no JVD Respiratory/Chest: lungs clear, normal breath sounds, no accessory muscle use Cardiovascular: regular rate, rhythm, no murmur Abdomen: non tender, soft, + pertinent finding (hypoactive bowel sounds) Extremities: non-tender, no pedal edema, no calf tenderness Neurologic/Psychiatric: alert, oriented x 3, + pertinent finding (strength in BLE equal and rated 5/5, flat affect, + responses are slow, movements are slow) Skin: normal color, warm/dry (Karina Palacios PA-C) Laboratory Results Last 24 Hours Test 03/11/17 17:59 03/11/17 23:36 03/12/17 07:01 Prothrombin Time 12.5 SECONDS Prothromb Time International Ratio 1.2 Activated Partial Thromboplast Time 26.9 SECONDS Partial Thromboplastin Ratio 1.0 Urine Color DK YELLOW Urine Appearance CLEAR Urine pH 5.0 Urine Specific Reading 1.024 Urine Protein NEG Urine Glucose (UA) NEG Urine Ketones 1+ Urine Occult Blood NEG Urine Nitrite NEG Urine Bilirubin NEG Urine Urobilinogen NEG Urine Leukocyte Esterase NEG White Blood Count 8.62 K/uL Red Blood Count 3.64 M/uL Hemoglobin 10.9 g/dL Hematocrit 32.6 % Mean Corpuscular Volume 89.6 fL Mean Corpuscular Hemoglobin 29.9 pg Mean Corpuscular Hemoglobin Concent 33.4 g/dl RDW Standard Deviation 43.2 fL RDW Coefficient of Variation 13.2 % Platelet Count 160 K/uL Mean Platelet Volume 10.7 fL Sodium Level 141 mmol/L Potassium Level 3.4 mmol/L Chloride Level 111 mmol/L Carbon Dioxide Level 20 mmol/L Anion Gap 10.0 mmol/L Blood Urea Nitrogen 22 mg/dl Creatinine 0.91 mg/dl Est Creatinine Clear Calc Drug Dose 59.1 ml/min Estimated GFR () 94.5 Estimated GFR (Non- 81.6 BUN/Creatinine Ratio 23.7 Random Glucose 87 mg/dl Calcium Level 8.1 mg/dl (Karina Palacios PA-C) Assessment and Plan 76-year-old male with PMHx of psychosis who presents for personal mcc with functional decline family's request [facility] consideration Failure to Thrive - Pt with weight loss of >23 lbs - PT/OT on board - Speech consulted - Calorie counts and appetite stimulant transitioned to Marinol. Pt had 1 L fluid given in the ER. Encourage PO intake. Hx of Mood disorder/ depression - For his psychosis will continue his Risperdal 4 mg HS - Zoloft 50 mg daily Oral Candidiasis - Continue nystatin swish and swallow DVT ppx: heparin subq Disposition: CM aware and have discussed with office of aging. Pt is Target process patient so is likely to be here through holiday. (Karina Palacios PA-C) I examined patient and agree with above note. I discussed analysis and plan with APC and patient. My exam did not differ from the APC and is noted below. General Appearance: WD/WN, no apparent distress, + thin, + pertinent finding ( flat affect ) Eyes: PERRL, EOMI ENT: hearing grossly normal, + pertinent finding (+ thrush) Neck: supple, no JVD Respiratory/Chest: lungs clear, normal breath sounds, no accessory muscle use Cardiovascular: regular rate, rhythm, no murmur Abdomen: non tender, soft, + pertinent finding (hypoactive bowel sounds) Extremities: non-tender, no pedal edema, no calf tenderness Neurologic/Psychiatric: alert, oriented x 3, + pertinent finding (strength in BLE equal and rated 5/5, flat affect, + responses are slow, movements are slow) Skin: normal color, warm/dry (Giancarlo Mancera M.D.)
[2017-03-12] MEDS ORDERED: POTASSIUM CHLORIDE 20 MEQ TABCR PO ONE (13:30)
[2017-03-12] MEDS: RISPERIDONE 2 MG TAB PO SCH (21:06)
[2017-03-12 23:41] VITALS: BP 124/68; PULSE 60; TEMP 36.7; O2SAT 98
[2017-03-13] MEDS: HEPARIN SOD 5000 UNIT/0.5 ML CARP SQ SCH ×3 (05:37→21:49)
--- NOTE | 2017-03-13 07:48 | Hospitalist Progress Note ---
Hospitalist Progress Note Date of Service Mar 13, 2017. (Karina Palacios PA-C) Subjective Pt evaluation today including: conversation w/ patient, physical exam, chart review, lab review, review of studies Pain: None PO Intake: Good Voiding: padron catheter in place The patient was seen and examined this morning. Pt reports doing well. He slept good overnight and has no acute complaints. He denies any pain. Pt notes PT/OT has not yet been in to work with him. He denies any abdominal pain and reports the padron is not usually in place. He denies any loose bowel movements, and had 1small BM overnight. He has been eating and drinking well. Denies any mouth pain or discomfort, and has been using nystatin for thrush. Earlier today he was up sitting in the bedside chair for breakfast. ROS: 6 point ROS reviewed and otherwise negative. (Karina Palacios PA-C) Objective Vital Signs Date Time Temp Pulse Resp B/P (MAP) Pulse Ox O2 Delivery O2 Flow Rate FiO2 03/13/17 07:41 Room Air 03/13/17 00:00 Room Air 03/12/17 23:41 36.7 60 16 124/68 (86) 98 Room Air 03/12/17 20:00 Room Air 03/12/17 16:00 Room Air 03/12/17 08:00 Room Air (Karina Palacios PA-C) Physical Exam Notes: General Appearance: WD/WN, no apparent distress, + thin, + pertinent finding ( flat affect ) Eyes: PERRL, EOMI ENT: hearing grossly normal, + pertinent finding (+ thrush) Neck: supple, no JVD Respiratory/Chest: lungs clear, normal breath sounds, no accessory muscle use Cardiovascular: regular rate, rhythm, no murmur Abdomen: non tender, soft, + pertinent finding (hypoactive bowel sounds) Extremities: non-tender, no pedal edema, no calf tenderness Neurologic/Psychiatric: alert, oriented x 3, + pertinent finding (strength in BLE equal and rated 5/5, flat affect, + responses are slow, movements are slow) Skin: normal color, warm/dry (Karina Palacios PA-C) Assessment and Plan 76-year-old male with PMHx of psychosis who presents for personal fpc with functional decline family's request for [facility] facility consideration Failure to Thrive - Pt with weight loss of >23 lbs - PT/OT on board - have reconsulted today - Speech consulted - Calorie counts and appetite stimulant transitioned to Marinol. Pt had 1 L fluid given in the ER. Encourage PO intake. Will order boost supplementation. - diarrhea resolved at this point: neg c. diff, shiga and salmonella - pt had 1 small BM overnight Urinary retention - Urine culture in process - UA fairly unremarkable - Dc padron today and attempt void trial, bladder scan q4H for retention. Prn straight cath for urine retention > 450 mL. Hx of Mood disorder/ depression - For his psychosis will continue his Risperdal 4 mg HS - Zoloft 50 mg daily - Psych consulted as the patient will need formal evaluation for Target process completion. Oral Candidiasis - Continue nystatin swish and swallow DVT ppx: heparin subq Disposition: CM aware and have discussed with office of aging. Pt is Target process patient so is likely to be here through holiday. (Karina Palacios, THERON) I examined patient and agree with above NOTE. I discussed A/P with APC and patient. I answered all of the patients questions. Below is my physical exam. General Appearance: WD/WN, no apparent distress, + thin, + pertinent finding ( flat affect ) ENT: hearing grossly normal, + pertinent finding (+ thrush) Neck: supple, no JVD Respiratory/Chest: lungs clear, normal breath sounds, no accessory muscle use Cardiovascular: regular rate, rhythm, no murmur Abdomen: non tender, soft, + pertinent finding (hypoactive bowel sounds) Extremities: non-tender, no pedal edema, no calf tenderness Neurologic/Psychiatric: alert, oriented x 3, + pertinent finding (strength in BLE equal and rated 5/5, flat affect, + responses are slow, movements are slow) (Giancarlo Mancera M.D.)
[2017-03-13 07:59] VITALS: BP 138/79; PULSE 65; TEMP 36.8; O2SAT 98
[2017-03-13] MEDS: SERTRALINE HCL 50 MG TAB PO SCH (08:22)
[2017-03-13] MEDS: DOCUSATE SODIUM 100 MG CAP PO SCH ×2 (08:22→20:51)
[2017-03-13] MEDS: NYSTATIN SUSP 500,000 U/5 ML UDC PO SCH ×4 (08:23→20:51)
[2017-03-13] MEDS: DRONABINOL 2.5 MG CAP PO SCH (08:39)
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
[2017-03-13 15:44] VITALS: BP 118/70; PULSE 63; TEMP 36.6; O2SAT 99
[2017-03-13] MEDS: RISPERIDONE 2 MG TAB PO SCH (20:51)
[2017-03-13 23:49] VITALS: BP 136/79; PULSE 65; TEMP 36.8; O2SAT 98
[2017-03-14] MEDS: HEPARIN SOD 5000 UNIT/0.5 ML CARP SQ SCH ×3 (05:45→21:08)
[2017-03-14 07:23] LABS: HEMATOCRIT 32.2 % (42-52); MEAN CELL VOLUME 88.5 fL (80-100); MEAN CORPUSCULAR HEMOGLOBIN 30.5 pg (25-34); MEAN CORPUSCULAR HGB CONC 34.5 g/dl (32-36); MEAN PLATELET VOLUME 10.5 fL (7.4-10.4); PLATELET COUNT 171 K/uL (130-400); RED BLOOD COUNT 3.64 M/uL (4.7-6.1); WHITE BLOOD COUNT 8.32 K/uL (4.8-10.8)
[2017-03-14 07:32] VITALS: BP 144/78; PULSE 68; TEMP 36.9; O2SAT 97
[2017-03-14 08:00] LABS: BUN/CREATININE RATIO 21.7 (10-20); CALCIUM 8.6 mg/dl (8.5-10.1); CREATININE 0.86 mg/dl (0.60-1.40); POTASSIUM 3.7 mmol/L (3.5-5.1)
--- NOTE | 2017-03-14 08:36 | Hospitalist Progress Note ---
Hospitalist Progress Note Date of Service Mar 14, 2017. (Karina Palacios PA-C) Subjective Pt evaluation today including: conversation w/ patient, physical exam, chart review, lab review, review of studies Pain: None PO Intake: Good Voiding: incontinence The patient was seen and examined this morning. He is slightly more expressive today, brighter mood and smiles once at me during conversation. I opened his blind for more light and he appreciated that. He denies any acute pain or complaints. Pt denies abdominal complaints or loose bowels. He is incontinent of urine since padron was removed. (Padron was initially placed for urinary retention.) He denies fever, chills or sweats. PT was encouraged to get up out of chair several times today. ROS: 6 point ROS reviewed and otherwise negative. (Karina Palacios PA-C) Objective Vital Signs Date Time Temp Pulse Resp B/P (MAP) Pulse Ox O2 Delivery O2 Flow Rate FiO2 03/14/17 08:17 Room Air 03/14/17 07:32 36.9 68 18 144/78 (100) 97 Room Air 03/14/17 00:00 Room Air 03/13/17 23:49 36.8 65 20 136/79 (98) 98 Room Air 03/13/17 16:25 Room Air 03/13/17 15:44 36.6 63 16 118/70 (86) 99 Room Air (Karina Palacios PA-C) Physical Exam Notes: Notes: General Appearance: WD/WN, no apparent distress, + thin, + pertinent finding ( flat affect ) Eyes: PERRL, EOMI ENT: hearing grossly normal, + pertinent finding (+ thrush improving) Neck: supple, no JVD Respiratory/Chest: lungs clear, normal breath sounds, no accessory muscle use Cardiovascular: regular rate, rhythm, no murmur Abdomen: non tender, soft, + pertinent finding (hypoactive bowel sounds) Extremities: non-tender, no pedal edema, no calf tenderness Neurologic/Psychiatric: alert, oriented x 3, + pertinent finding (mood slightly improved, strength in BLE equal and rated 5/5, flat affect, + responses are slow, movements are slow) Skin: normal color, warm/dry (Karina Palacios, THERON) Laboratory Results Last 24 Hours Test 03/14/17 07:07 White Blood Count 8.32 K/uL Red Blood Count 3.64 M/uL Hemoglobin 11.1 g/dL Hematocrit 32.2 % Mean Corpuscular Volume 88.5 fL Mean Corpuscular Hemoglobin 30.5 pg Mean Corpuscular Hemoglobin Concent 34.5 g/dl RDW Standard Deviation 43.6 fL RDW Coefficient of Variation 13.4 % Platelet Count 171 K/uL Mean Platelet Volume 10.5 fL Sodium Level 140 mmol/L Potassium Level 3.7 mmol/L Chloride Level 111 mmol/L Carbon Dioxide Level 21 mmol/L Anion Gap 8.0 mmol/L Blood Urea Nitrogen 19 mg/dl Creatinine 0.86 mg/dl Est Creatinine Clear Calc Drug Dose 62.5 ml/min Estimated GFR () 97.6 Estimated GFR (Non- 84.2 BUN/Creatinine Ratio 21.7 Random Glucose 92 mg/dl Calcium Level 8.6 mg/dl (Karina Palacios PA-C) Assessment and Plan 76-year-old male with PMHx of psychosis who presents for personal mcc with functional decline family's request for shelter facility consideration Failure to Thrive - Pt with weight loss of >23 lbs - PT/OT on board - Speech consulted - Calorie counts and appetite stimulant transitioned to Marinol. Pt had 1 L fluid given in the ER. Encourage PO intake. cont boost supplementation. - diarrhea resolved at this point: neg c. diff, shiga and salmonella - pt had 1 small BM this morning Urinary retention- resolved - Urine culture in process - UA fairly unremarkable - Dc padron on 03/13 - pt is incontinent per nursing. Pt denies any urinary symptoms at this time. Will repeat a UA at this time to make sure no catheter associated infection. Hx of Mood disorder/ depression - For his psychosis will continue his Risperdal 4 mg HS - Zoloft 50 mg daily - Psych consulted as the patient will need formal evaluation for [facility] process completion - in process Oral Candidiasis - Continue nystatin swish and swallow DVT ppx: heparin subq Disposition: CM aware and have discussed with office of aging. Pt is [facility] process patient so is likely to be here through holiday. (Karina Palacios PA-C) I examined patient and agree with above NOTE. I discussed A/P with APC and patient. I answered all of the patients questions. Below is my physical exam. General Appearance: WD/WN, no apparent distress, + thin, + pertinent finding ( flat affect ) ENT: hearing grossly normal, + pertinent finding (+ thrush improving) Neck: supple, no JVD Respiratory/Chest: lungs clear, normal breath sounds, no accessory muscle use Cardiovascular: regular rate, rhythm, no murmur Abdomen: non tender, soft, NORMAL BOWEL SOUNDS Extremities: non-tender, no pedal edema, no calf tenderness Neurologic/Psychiatric: alert, oriented x 3, + pertinent finding (strength in BLE equal and rated 5/5, flat affect, + responses are slow, movements are slow) (Giancarlo Mancera M.D.)
[2017-03-14] MEDS: SERTRALINE HCL 50 MG TAB PO SCH (08:44)
[2017-03-14] MEDS: NYSTATIN SUSP 500,000 U/5 ML UDC PO SCH ×4 (08:44→21:01)
[2017-03-14] MEDS: DOCUSATE SODIUM 100 MG CAP PO SCH ×2 (08:44→21:01)
[2017-03-14] MEDS: DRONABINOL 2.5 MG CAP PO SCH (08:54)
[2017-03-14 15:30] VITALS: O2SAT 98
[2017-03-14 15:43] VITALS: BP 121/70; PULSE 69; TEMP 36.8; O2SAT 98
[2017-03-14 20:00] VITALS: O2SAT 98
[2017-03-14] MEDS: RISPERIDONE 2 MG TAB PO SCH (21:01)
[2017-03-15] VITALS: O2SAT 98
[2017-03-15 01:19] VITALS: BP 134/76; PULSE 64; TEMP 36.6; O2SAT 98
[2017-03-15] MEDS: HEPARIN SOD 5000 UNIT/0.5 ML CARP SQ SCH ×3 (06:07→21:36)
[2017-03-15 07:58] VITALS: BP 137/79; PULSE 66; TEMP 36.9; O2SAT 98
[2017-03-15 07:59] VITALS: O2SAT 98
[2017-03-15] MEDS: NYSTATIN SUSP 500,000 U/5 ML UDC PO SCH ×4 (08:05→21:37)
[2017-03-15] MEDS: SERTRALINE HCL 50 MG TAB PO SCH (08:05)
[2017-03-15] MEDS: DOCUSATE SODIUM 100 MG CAP PO SCH ×2 (08:05→21:38)
[2017-03-15] MEDS: DRONABINOL 2.5 MG CAP PO SCH (12:32)
--- NOTE | 2017-03-15 13:16 | Hospitalist Progress Note ---
Hospitalist Progress Note Date of Service Mar 15, 2017. Subjective Pt evaluation today including: conversation w/ patient, physical exam, chart review, lab review, review of inpatient medication list Mr. Nagy does not have any complaints. He has not had any further diarrhea. He is eating ok but has not felt much of an appetite. ROS Constitutional: no chills, aches, sweats or fever Respiratory: no sob,cough, sputum, or wheezing Cardiac: no chest pain, palpitations, edema, orthopnea or lightheadedness GI: no abdominal pain, nausea, vomiting, diarrhea or constipation : no dysuria or hesitancy Extremities: no joint pain or weakness Skin: no rash All Other Systems: Reviewed and Negative Medications Medications (Trade) Dose Ordered Sig/Sada Route Start Time Stop Time Status Last Admin Dose Admin Dronabinol (Marinol Cap) 2.5 mg DAILY@1100 PO 03/15/17 11:00 04/11/17 08:59 03/15/17 12:32 2.5 MG Objective Vital Signs Date Time Temp Pulse Resp B/P (MAP) Pulse Ox O2 Delivery O2 Flow Rate FiO2 03/15/17 07:59 98 Room Air 03/15/17 07:58 36.9 66 20 137/79 (98) 98 Room Air 03/15/17 01:19 36.6 64 20 134/76 (95) 98 Room Air 03/15/17 00:00 98 Room Air 03/14/17 20:00 98 Room Air 03/14/17 15:43 36.8 69 18 121/70 (87) 98 Room Air 03/14/17 15:30 98 Room Air Physical Exam Notes: General: no distress Eyes: normal inspection, PERLL Respiratory: chest non tender, clear to auscultation, normal breath sounds, no respiratory distress, no accessory muscle use Cardiac: regular rate and rhythm, no rub or gallop, no murmur, no edema, no jvd GI/: active bowel sounds, no abd pain or tenderness, soft, non distended Extremities: normal range of motion, normal strength, non tender Neuro/Psych: alert and oriented x 3, flat affect Assessment and Plan 76-year-old male with PMHx of psychosis who presents for personal snf with functional decline [facility] consideration Failure to Thrive - Pt with weight loss of >23 lbs - PT/OT, lead burner consulted - appetite stimulant transitioned to Marinol, continue boost and regular diet - no further diarrhea: neg c. diff, shiga and salmonella Urinary retention- resolved - Urine culture - no growth Hx of psychosis/ depression - continue his Risperdal and zoloft - Psych consult Oral Candidiasis - Continue nystatin swish and swallow DVT ppx: heparin subq Disposition: CM aware and have discussed with office of aging. Pt is [facility] process patient so is likely to be here through holiday.
[2017-03-15 15:30] VITALS: O2SAT 99
[2017-03-15 16:07] VITALS: BP 111/64; PULSE 63; TEMP 36.9; O2SAT 99
[2017-03-15 17:22] LABS: URINE APPEARANCE CLEAR (CLEAR); URINE BILIRUBIN NEG (NEG); URINE COLOR DK YELLOW; URINE NITRITE NEG (NEG); URINE SPECIFIC GRAVITY 1.027 (1.000-1.030); UROBILINOGEN NEG (NEG); ZZUR CULT IF INDIC CLEAN CATCH NO
[2017-03-15 17:24] LABS: MANUAL MICROSCOPIC REQUIRED? NO; REVIEW REQ? NO
[2017-03-15] MEDS: RISPERIDONE 2 MG TAB PO SCH (21:38)
[2017-03-16 00:31] VITALS: BP 116/60; PULSE 58; TEMP 37.2; O2SAT 97
[2017-03-16] MEDS: HEPARIN SOD 5000 UNIT/0.5 ML CARP SQ SCH ×3 (06:00→20:33)
[2017-03-16 06:31] LABS: HEMATOCRIT 31.9 % (42-52); MEAN CELL VOLUME 90.1 fL (80-100); MEAN CORPUSCULAR HEMOGLOBIN 30.2 pg (25-34); MEAN CORPUSCULAR HGB CONC 33.5 g/dl (32-36); MEAN PLATELET VOLUME 10.1 fL (7.4-10.4); PLATELET COUNT 201 K/uL (130-400); RED BLOOD COUNT 3.54 M/uL (4.7-6.1); WHITE BLOOD COUNT 7.17 K/uL (4.8-10.8)
[2017-03-16 06:59] LABS: BUN/CREATININE RATIO 29.6 (10-20); CREATININE 0.8 mg/dl (0.60-1.40); POTASSIUM 3.8 mmol/L (3.5-5.1)
[2017-03-16 07:39] VITALS: BP 112/63; PULSE 60; TEMP 36.9; O2SAT 96
[2017-03-16] MEDS: SERTRALINE HCL 50 MG TAB PO SCH (08:12)
[2017-03-16] MEDS: DOCUSATE SODIUM 100 MG CAP PO SCH ×2 (08:12→20:28)
[2017-03-16] MEDS: NYSTATIN SUSP 500,000 U/5 ML UDC PO SCH ×4 (08:13→20:28)
[2017-03-16 09:52] VITALS: O2SAT 96
[2017-03-16] MEDS: DRONABINOL 2.5 MG CAP PO SCH (12:04)
--- NOTE | 2017-03-16 14:19 | Hospitalist Progress Note ---
Hospitalist Progress Note Date of Service Mar 16, 2017. Subjective Pt evaluation today including: conversation w/ patient, physical exam, chart review, lab review, review of studies, review of inpatient medication list Voiding: no voiding problems Mr. Nagy denies pain or specific problems. He continues to have little appetite but is eating some. ROS Constitutional: no chills, aches, sweats or fever Respiratory: no sob,cough, sputum, or wheezing Cardiac: no chest pain, palpitations, edema, orthopnea or lightheadedness GI: no abdominal pain, nausea, vomiting, diarrhea or constipation : no dysuria or hesitancy Extremities: no joint pain or weakness Skin: no rash All Other Systems: Reviewed and Negative Medications Medications Administered Medications (Trade) Dose Ordered Sig/Sada Route Start Time Stop Time Status Last Admin Dose Admin Sodium Chloride 1,000 ml @ 999 mls/hr Q1H1M STAT IV 03/11/17 14:51 03/11/17 15:51 DC 03/11/17 14:51 999 MLS/HR Heparin Sodium (Porcine) (Heparin Sq 5000 Unit/0.5ml) 5,000 unit Q8H SQ 03/11/17 22:00 04/10/17 21:59 03/16/17 06:00 5,000 UNIT Risperidone (Risperdal Tab) 4 mg HS PO 03/11/17 21:00 04/10/17 20:59 03/15/17 21:38 4 MG Sertraline HCl (Zoloft Tab) 50 mg DAILY PO 03/12/17 09:00 04/11/17 08:59 03/16/17 08:12 50 MG Sodium Chloride 1,000 ml @ 100 mls/hr Q10H IV 03/11/17 16:30 03/12/17 02:29 DC 03/11/17 19:41 100 MLS/HR Docusate Sodium (coLACE CAP) 100 mg BID PO 03/11/17 21:00 04/10/17 20:59 03/16/17 08:12 100 MG Dronabinol (Marinol Cap) 2.5 mg DAILY PO 03/12/17 09:00 03/14/17 11:01 DC 03/14/17 08:54 2.5 MG Nystatin (Mycostatin Susp) 5 ml QID PO 03/11/17 17:00 03/21/17 16:59 03/16/17 08:13 5 ML Pneumococcal Polysaccharide Vaccine (Pneumovax-23 Inj) 25 mcg ONCE ONCE IM. 03/11/17 18:45 03/11/17 18:47 DC 03/11/17 21:10 25 MCG Potassium Chloride (Klor-Con Tab) 40 meq NOW ONCE PO 03/12/17 13:30 03/12/17 13:31 DC 03/12/17 14:25 40 MEQ Dronabinol (Marinol Cap) 2.5 mg DAILY@1100 PO 03/15/17 11:00 04/11/17 08:59 03/16/17 12:04 2.5 MG Objective Vital Signs Date Time Temp Pulse Resp B/P (MAP) Pulse Ox O2 Delivery O2 Flow Rate FiO2 03/16/17 09:52 96 Room Air 03/16/17 07:39 36.9 60 18 112/63 (79) 96 Room Air 03/16/17 00:31 37.2 58 17 116/60 (78) 97 Room Air 03/16/17 00:00 Room Air 03/15/17 16:07 36.9 63 16 111/64 (80) 99 Room Air 03/15/17 15:30 99 Room Air Physical Exam Notes: General: no distress Eyes: normal inspection, PERLL Respiratory: chest non tender, clear to auscultation, normal breath sounds, no respiratory distress, no accessory muscle use Cardiac: regular rate and rhythm, no rub or gallop, no murmur, no edema, no jvd GI/: active bowel sounds, no abd pain or tenderness, soft, non distended Extremities: normal range of motion, mild generalized weakness, non tender Neuro/Psych: alert and oriented x 3, flat affect Skin: normal color, dry Laboratory Results Last 24 Hours Test 03/15/17 17:05 03/16/17 06:20 Urine Color DK YELLOW Urine Appearance CLEAR Urine pH 5.0 Urine Specific [place] 1.027 Urine Protein NEG Urine Glucose (UA) NEG Urine Ketones TRACE Urine Occult Blood NEG Urine Nitrite NEG Urine Bilirubin NEG Urine Urobilinogen NEG Urine Leukocyte Esterase NEG White Blood Count 7.17 K/uL Red Blood Count 3.54 M/uL Hemoglobin 10.7 g/dL Hematocrit 31.9 % Mean Corpuscular Volume 90.1 fL Mean Corpuscular Hemoglobin 30.2 pg Mean Corpuscular Hemoglobin Concent 33.5 g/dl RDW Standard Deviation 46.0 fL RDW Coefficient of Variation 13.9 % Platelet Count 201 K/uL Mean Platelet Volume 10.1 fL Sodium Level 141 mmol/L Potassium Level 3.8 mmol/L Chloride Level 112 mmol/L Carbon Dioxide Level 21 mmol/L Anion Gap 8.0 mmol/L Blood Urea Nitrogen 24 mg/dl Creatinine 0.80 mg/dl Est Creatinine Clear Calc Drug Dose 67.2 ml/min Estimated GFR () 100.6 Estimated GFR (Non- 86.8 BUN/Creatinine Ratio 29.6 Random Glucose 92 mg/dl Calcium Level 9.0 mg/dl Assessment and Plan 76-year-old male with PMHx of psychosis who presents for personal snf with functional decline family's request for half-way facility consideration Failure to Thrive - Pt with weight loss of >23 lbs - PT/OT, student services representative consulted - continue Marinol, boost and regular diet - no further diarrhea: neg c. diff, shiga and salmonella Urinary retention- resolved - Urine culture - no growth Hx of psychosis/ depression - continue his Risperdal and zoloft - Psych consulted Oral Candidiasis - Continue nystatin swish and swallow DVT ppx: heparin subq Disposition: Target process patient so is likely to be here through the weekend.
[2017-03-16 15:13] VITALS: BP 107/63; PULSE 93; TEMP 37; O2SAT 93
[2017-03-16 16:34] VITALS: O2SAT 96
[2017-03-16] MEDS ORDERED: BOOST VANILLA PO SCH ×2 (17:00)
[2017-03-16] MEDS: BOOST VANILLA PO SCH ×2 (17:00)
[2017-03-16] MEDS: RISPERIDONE 2 MG TAB PO SCH (20:28)
[2017-03-17 00:24] VITALS: BP 118/68; PULSE 65; TEMP 36.5; O2SAT 98
[2017-03-17] MEDS: HEPARIN SOD 5000 UNIT/0.5 ML CARP SQ SCH ×3 (06:24→20:48)
[2017-03-17 08:00] VITALS: O2SAT 98
[2017-03-17 08:50] VITALS: BP 115/61; PULSE 104; TEMP 37.4; O2SAT 94
[2017-03-17] MEDS: NYSTATIN SUSP 500,000 U/5 ML UDC PO SCH ×6 (09:00→20:47)
[2017-03-17] MEDS: DOCUSATE SODIUM 100 MG CAP PO SCH ×2 (09:28→20:47)
[2017-03-17] MEDS: SERTRALINE HCL 50 MG TAB PO SCH (09:28)
[2017-03-17] MEDS: BOOST VANILLA PO SCH ×6 (09:28→17:06)
--- NOTE | 2017-03-17 09:52 | Hospitalist Progress Note ---
Hospitalist Progress Note Date of Service Mar 17, 2017. (Asia Fernandez CRNP) Subjective Pt evaluation today including: conversation w/ patient, physical exam, chart review, review of inpatient medication list Voiding: no voiding problems Mr. Nagy does not have complaints except for acid reflux with accompanying hiccups. He has no sob or palpitations or radiating pain. His appetite is about the same, encouraged to drink boost. ROS Constitutional: no chills, aches, sweats or fever Respiratory: no sob,cough, sputum, or wheezing Cardiac: no chest pain, palpitations, edema, orthopnea or lightheadedness GI: no abdominal pain, nausea, vomiting, diarrhea or constipation, see HPI : no dysuria or hesitancy Extremities: no joint pain or weakness Skin: no rash All Other Systems: Reviewed and Negative (Asia Fernandez CRNP) Medications Medications Administered Medications (Trade) Dose Ordered Sig/Sada Route Start Time Stop Time Status Last Admin Dose Admin Sodium Chloride 1,000 ml @ 999 mls/hr Q1H1M STAT IV 03/11/17 14:51 03/11/17 15:51 DC 03/11/17 14:51 999 MLS/HR Heparin Sodium (Porcine) (Heparin Sq 5000 Unit/0.5ml) 5,000 unit Q8H SQ 03/11/17 22:00 04/10/17 21:59 03/17/17 06:24 5,000 UNIT Al Hydrox/Mg Hydrox/Simethicone (Maalox Max Susp) 15 ml Q4H PRN PO 03/11/17 16:00 04/10/17 15:59 03/16/17 23:51 15 ML Famotidine (Pepcid Tab) 20 mg DAILY PRN PO 03/11/17 16:00 04/10/17 15:59 03/17/17 09:28 20 MG Risperidone (Risperdal Tab) 4 mg HS PO 03/11/17 21:00 04/10/17 20:59 03/16/17 20:28 4 MG Sertraline HCl (Zoloft Tab) 50 mg DAILY PO 03/12/17 09:00 04/11/17 08:59 03/17/17 09:28 50 MG Sodium Chloride 1,000 ml @ 100 mls/hr Q10H IV 03/11/17 16:30 03/12/17 02:29 DC 03/11/17 19:41 100 MLS/HR Docusate Sodium (coLACE CAP) 100 mg BID PO 03/11/17 21:00 04/10/17 20:59 03/17/17 09:28 100 MG Dronabinol (Marinol Cap) 2.5 mg DAILY PO 03/12/17 09:00 03/14/17 11:01 DC 03/14/17 08:54 2.5 MG Nystatin (Mycostatin Susp) 5 ml QID PO 03/11/17 17:00 03/21/17 16:59 03/16/17 20:28 5 ML Pneumococcal Polysaccharide Vaccine (Pneumovax-23 Inj) 25 mcg ONCE ONCE IM. 03/11/17 18:45 03/11/17 18:47 DC 03/11/17 21:10 25 MCG Potassium Chloride (Klor-Con Tab) 40 meq NOW ONCE PO 03/12/17 13:30 03/12/17 13:31 DC 03/12/17 14:25 40 MEQ Dronabinol (Marinol Cap) 2.5 mg DAILY@1100 PO 03/15/17 11:00 04/11/17 08:59 03/16/17 12:04 2.5 MG Enteral Nutritional Formula (Boost) 1 can TIDM PO 03/16/17 17:00 04/15/17 16:59 03/17/17 09:28 1 CAN (Asia Fernandez CRNP) Objective Vital Signs Date Time Temp Pulse Resp B/P (MAP) Pulse Ox O2 Delivery O2 Flow Rate FiO2 03/17/17 08:50 37.4 104 20 115/61 (79) 94 Room Air 03/17/17 00:24 36.5 65 16 118/68 (85) 98 Room Air 03/17/17 00:00 Room Air 03/16/17 20:00 Room Air 03/16/17 16:34 96 Room Air 03/16/17 15:13 37.0 93 18 107/63 (78) 93 Room Air 03/16/17 09:52 96 Room Air (Asia Fernandez CRNP) Physical Exam Notes: General: no distress Eyes: normal inspection, PERLL Respiratory: chest non tender, clear to auscultation, normal breath sounds, no respiratory distress, no accessory muscle use Cardiac: regular rate and rhythm, no rub or gallop, no murmur, no edema, no jvd GI/: active bowel sounds, no abd pain or tenderness, soft, non distended Extremities: normal range of motion, normal strength, non tender Neuro/Psych: alert and oriented x 3, normal mood and affect Skin: normal color, dry (Asia Fernandez CRNP) Assessment and Plan 76-year-old male with PMHx of psychosis who presents for personal senior living with functional decline family's request for residential facility consideration Failure to Thrive - Pt with weight loss of >23 lbs - PT/OT, office auditor consulted - per dietary patient is consuming about 75-85% of meals, Boost to add 30 gm protein and 800 calories - continue Marinol, boost and regular diet - diarrhea resolved, cdiff and cultures negative GERD - 20 mg famotidine daily Urinary retention - Urine culture - no growth - resolved Hx of psychosis/ depression - continue his Risperdal and zoloft - Psych consulted Oral Candidiasis - Continue nystatin swish and swallow DVT ppx: heparin subq Disposition: Target process patient so is likely to be here through the weekend - accepted at [facility]. (Asia Fernandez CRNP) I examined patient and I agree with the above note and analysis and plan of the patient. I discussed plan of care with patient and answered all of the questions My exam is below: General: no distress Head: NC, NT neck: No JVD, supple Respiratory: chest non tender, clear to auscultation, normal breath sounds, no respiratory distress, no accessory muscle use Cardiac: regular rate and rhythm, no rub or gallop, no murmur, no edema GI/: active bowel sounds, no abd pain or tenderness, soft, non distended Extremities: normal range of motion, normal strength, Neuro/Psych: alert and oriented to self only, normal mood and affect (Giancarlo Mancera M.D.)
[2017-03-17] MEDS: FAMOTIDINE 20 MG TAB PO SCH (11:00)
[2017-03-17] MEDS: ACETAMINOPHEN 325 MG TAB PO PRN (11:53)
[2017-03-17] MEDS: DRONABINOL 2.5 MG CAP PO SCH (11:53)
[2017-03-17 15:57] VITALS: BP 97/55; PULSE 80; TEMP 37.2; O2SAT 94
[2017-03-17] MEDS: RISPERIDONE 2 MG TAB PO SCH (20:47)
[2017-03-17 23:49] VITALS: BP 112/68; PULSE 67; TEMP 36.9; O2SAT 98
[2017-03-18] MEDS: HEPARIN SOD 5000 UNIT/0.5 ML CARP SQ SCH ×3 (06:07→20:30)
[2017-03-18] MEDS: ACETAMINOPHEN 325 MG TAB PO PRN (06:10)
[2017-03-18 07:22] VITALS: BP 115/62; PULSE 63; TEMP 36.4; O2SAT 98
[2017-03-18 07:25] LABS: HEMATOCRIT 34.2 % (42-52); MEAN CORPUSCULAR HEMOGLOBIN 30.6 pg (25-34); MEAN CORPUSCULAR HGB CONC 33.6 g/dl (32-36); MEAN PLATELET VOLUME 10.5 fL (7.4-10.4); PLATELET COUNT 233 K/uL (130-400); RED BLOOD COUNT 3.76 M/uL (4.7-6.1); WHITE BLOOD COUNT 10.54 K/uL (4.8-10.8)
[2017-03-18 07:53] LABS: BUN/CREATININE RATIO 32.5 (10-20); CREATININE 0.86 mg/dl (0.60-1.40)
[2017-03-18 08:30] VITALS: O2SAT 98
[2017-03-18] MEDS: BOOST VANILLA PO SCH ×6 (08:36→17:00)
[2017-03-18] MEDS: SERTRALINE HCL 50 MG TAB PO SCH (08:36)
[2017-03-18] MEDS: FAMOTIDINE 20 MG TAB PO SCH (08:36)
[2017-03-18] MEDS: DOCUSATE SODIUM 100 MG CAP PO SCH ×2 (08:36→20:25)
[2017-03-18] MEDS: NYSTATIN SUSP 500,000 U/5 ML UDC PO SCH ×4 (08:37→20:25)
[2017-03-18] MEDS: DRONABINOL 2.5 MG CAP PO SCH ×2 (11:07→15:52)
[2017-03-18] MEDS ORDERED: PANTOprazole SOD 40 MG TAB PO ONE (12:54)
--- NOTE | 2017-03-18 13:06 | Hospitalist Progress Note ---
Hospitalist Progress Note Date of Service Mar 18, 2017. (Asia Fernandez .ROSARIO) Subjective Pt evaluation today including: conversation w/ patient, physical exam, chart review, lab review, review of inpatient medication list Voiding: no voiding problems Mr. Nagy is complaining of a sore throat for the past few days. He does feel that his heart burn is better since taking famotidine ROS Constitutional: no chills, aches, sweats or fever Respiratory: no sob,cough, sputum, or wheezing Cardiac: no chest pain, palpitations, edema, orthopnea or lightheadedness GI: no abdominal pain, nausea, vomiting, diarrhea or constipation : no dysuria or hesitancy Extremities: no joint pain or weakness Skin: no rash All Other Systems: Reviewed and Negative (Asia Fernandez CRNP) Medications Medications Administered Medications (Trade) Dose Ordered Sig/Sada Route Start Time Stop Time Status Last Admin Dose Admin Sodium Chloride 1,000 ml @ 999 mls/hr Q1H1M STAT IV 03/11/17 14:51 03/11/17 15:51 DC 03/11/17 14:51 999 MLS/HR Heparin Sodium (Porcine) (Heparin Sq 5000 Unit/0.5ml) 5,000 unit Q8H SQ 03/11/17 22:00 04/10/17 21:59 03/18/17 06:07 5,000 UNIT Acetaminophen (Tylenol Tab) 650 mg Q4H PRN PO 03/11/17 16:00 04/10/17 15:59 03/18/17 06:10 650 MG Al Hydrox/Mg Hydrox/Simethicone (Maalox Max Susp) 15 ml Q4H PRN PO 03/11/17 16:00 04/10/17 15:59 03/16/17 23:51 15 ML Famotidine (Pepcid Tab) 20 mg DAILY PRN PO 03/11/17 16:00 03/17/17 09:48 DC 03/17/17 09:28 20 MG Risperidone (Risperdal Tab) 4 mg HS PO 03/11/17 21:00 04/10/17 20:59 03/17/17 20:47 4 MG Sertraline HCl (Zoloft Tab) 50 mg DAILY PO 03/12/17 09:00 04/11/17 08:59 03/18/17 08:36 50 MG Sodium Chloride 1,000 ml @ 100 mls/hr Q10H IV 03/11/17 16:30 03/12/17 02:29 DC 03/11/17 19:41 100 MLS/HR Docusate Sodium (coLACE CAP) 100 mg BID PO 03/11/17 21:00 04/10/17 20:59 03/18/17 08:36 100 MG Dronabinol (Marinol Cap) 2.5 mg DAILY PO 03/12/17 09:00 03/14/17 11:01 DC 03/14/17 08:54 2.5 MG Nystatin (Mycostatin Susp) 5 ml QID PO 03/11/17 17:00 03/21/17 16:59 03/16/17 20:28 5 ML Pneumococcal Polysaccharide Vaccine (Pneumovax-23 Inj) 25 mcg ONCE ONCE IM. 03/11/17 18:45 03/11/17 18:47 DC 03/11/17 21:10 25 MCG Potassium Chloride (Klor-Con Tab) 40 meq NOW ONCE PO 03/12/17 13:30 03/12/17 13:31 DC 03/12/17 14:25 40 MEQ Dronabinol (Marinol Cap) 2.5 mg DAILY@1100 PO 03/15/17 11:00 03/18/17 08:28 DC 03/17/17 11:53 2.5 MG Enteral Nutritional Formula (Boost) 1 can TIDM PO 03/16/17 17:00 04/15/17 16:59 03/18/17 08:36 1 CAN Famotidine (Pepcid Tab) 20 mg DAILY PO 03/17/17 11:00 04/16/17 10:59 03/18/17 08:36 20 MG Dronabinol (Marinol Cap) 2.5 mg BID@1100,1600 PO 03/18/17 11:00 04/17/17 10:59 03/18/17 11:07 2.5 MG (Asia Fernandez, ROSARIO) Objective Vital Signs Date Time Temp Pulse Resp B/P (MAP) Pulse Ox O2 Delivery O2 Flow Rate FiO2 03/18/17 08:30 98 Room Air 03/18/17 07:22 36.4 63 20 115/62 (79) 98 03/18/17 00:00 Room Air 03/17/17 23:49 36.9 67 18 112/68 (83) 98 Room Air 03/17/17 16:00 Room Air 03/17/17 15:57 37.2 80 18 97/55 (69) 94 Room Air (Asia Fernandez CRNP) Physical Exam Notes: General: no distress Eyes: normal inspection, PERLL EENT: throat slightly erythematous, no exudates, tonsils 1+, tympanic membranes pearly [place] Respiratory: chest non tender, clear to auscultation, normal breath sounds, no respiratory distress, no accessory muscle use Cardiac: regular rate and rhythm, no rub or gallop, no murmur, no edema, no jvd GI/: active bowel sounds, no abd pain or tenderness, soft, non distended Extremities: normal range of motion, normal strength, non tender Neuro/Psych: alert and oriented x 3, flat affect Skin: normal color, dry (Asia Fernandez CRNP) Laboratory Results Last 24 Hours Test 03/18/17 06:48 White Blood Count 10.54 K/uL Red Blood Count 3.76 M/uL Hemoglobin 11.5 g/dL Hematocrit 34.2 % Mean Corpuscular Volume 91.0 fL Mean Corpuscular Hemoglobin 30.6 pg Mean Corpuscular Hemoglobin Concent 33.6 g/dl RDW Standard Deviation 45.9 fL RDW Coefficient of Variation 13.8 % Platelet Count 233 K/uL Mean Platelet Volume 10.5 fL Sodium Level 140 mmol/L Potassium Level 4.0 mmol/L Chloride Level 108 mmol/L Carbon Dioxide Level 21 mmol/L Anion Gap 11.0 mmol/L Blood Urea Nitrogen 28 mg/dl Creatinine 0.86 mg/dl Est Creatinine Clear Calc Drug Dose 62.5 ml/min Estimated GFR () 97.6 Estimated GFR (Non- 84.2 BUN/Creatinine Ratio 32.5 Random Glucose 87 mg/dl Calcium Level 9.0 mg/dl (Asia Fernandez CRNP) Assessment and Plan 76-year-old male with PMHx of psychosis who presents for personal senior living with functional decline, family [place] [facility] [facility] Failure to Thrive - Pt with weight loss of >23 lbs - PT/OT, diffuser operator consulted - per dietary patient is consuming about 75-85% of meals, Boost to add 30 gm protein and 800 calories - increased Marinol as patient still does not feel he has much of an appetite, boost and regular diet - diarrhea resolved, cdiff and cultures negative GERD - 20 mg famotidine hs - added 40 protonix daily - may be able to drop to one medication once sore throat clears Urinary retention - Urine culture - no growth - resolved Hx of psychosis/ depression - continue his Risperdal and zoloft - Psych consulted Oral Candidiasis - continue nystatin swish and swallow - it appears the patient was taking this medication from the to the but has refused the medication for the last two days, did not see white coating in mouth on exam but it is possible that the sore throat could be continuation of kelvin so would not discontinue nystatin yet. DVT ppx: heparin subq Disposition: Target process patient so is likely to be here through the weekend - accepted at [facility]. (Asia Fernandez ., ROSARIO) I examined patient and I agree with the above note and analysis and plan of the patient. I discussed plan of care with patient and answered all of the questions My exam is below: General: no distress Head: NC, NT mouth: normal throat exam. neck: No JVD, supple Respiratory: chest non tender, clear to auscultation, normal breath sounds, no respiratory distress, no accessory muscle use Cardiac: regular rate and rhythm, no rub or gallop, no murmur, no edema GI/: active bowel sounds, no abd pain or tenderness, soft, non distended Extremities: normal range of motion, normal strength, Neuro/Psych: alert and oriented to self only, normal mood and affect (Giancarlo Mancera M.D.)
[2017-03-18 15:28] VITALS: BP 124/77; PULSE 69; TEMP 36.8; O2SAT 98
[2017-03-18] MEDS: RISPERIDONE 2 MG TAB PO SCH (20:25)
[2017-03-18 23:36] VITALS: BP 110/65; PULSE 68; TEMP 37.2; O2SAT 93
[2017-03-19] VITALS: O2SAT 98
[2017-03-19] MEDS: HEPARIN SOD 5000 UNIT/0.5 ML CARP SQ SCH ×2 (05:41→05:57)
[2017-03-19 07:35] VITALS: BP 113/63; PULSE 70; TEMP 36.7; O2SAT 97
[2017-03-19 08:10] VITALS: O2SAT 97
[2017-03-19] MEDS: BOOST VANILLA PO SCH ×4 (08:33→12:58)
[2017-03-19] MEDS: DOCUSATE SODIUM 100 MG CAP PO SCH (08:33)
[2017-03-19] MEDS: NYSTATIN SUSP 500,000 U/5 ML UDC PO SCH ×2 (08:34→12:58)
[2017-03-19] MEDS: SERTRALINE HCL 50 MG TAB PO SCH (08:34)
[2017-03-19] MEDS ORDERED: PANTOprazole SOD 40 MG TAB PO SCH (09:00)
[2017-03-19] MEDS ORDERED: Enteral Nutrition Formula PO (10:50)
[2017-03-19] MEDS ORDERED: CLC100 PO (10:50)
[2017-03-19] MEDS ORDERED: MRN25 PO (10:50)
[2017-03-19] MEDS ORDERED: NYSS5 PO (10:50)
[2017-03-19] MEDS ORDERED: PRT40 PO (10:50)
--- NOTE | 2017-03-19 10:56 | Discharge Instructions ---
Discharge Instructions Date of Service Mar 19, 2017. Admission Reason for Admission: Diarrheal Disease Discharge Discharge Diagnosis / Problem: Failure to thrive Discharge Goals Goal(s): Decrease discomfort, Improve function, Increase independence, Improve disease control Activity Recommendations Activity Level: Assistance Required Therapies: Physical Therapy, Occupational Therapy Lifting Limitations: no more than 10 pounds, gradually increase as tolerated Exercise/Sports Limitations: as tolerated, gradually increase as tolerated Shower/Bathe: no limitations (with assistance) . Additional Information Patient informed of condition: Yes Advance Directives: Yes DNR: No Level of Care: Skilled Communicable Disease: No Prognosis: Stable Tovar Catheter: No Instructions / Follow-Up Instructions / Follow-Up You were admitted to [facility] with diarrheal illness and diagnosed with failure to thrive. During your stay here you were treated with appetite stimulants, protein supplementation and other supportive care. Diarrhea was not infectious as it was tested and negative. This resolved and your symptoms were alleviated. You were stable for discharge to [facility], [place]. Medications: Continue taking nystatin x 3 more days to complete a 10 day course for oral candidiasis and suspected esophageal candidiasis. Continue taking appetite stimulants as prescribed. Continue taking your medications as above. Appointments: Follow up with your Primary Care Provider within 1 week. Current Hospital Diet Patient's current hospital diet: Regular Diet Discharge Diet Recommended Diet: Regular Diet Pending Studies Studies pending at discharge: no Medical Emergencies . Who to Call and When: Medical Emergencies: If at any time you feel your situation is an emergency, please call 911 immediately. . Non-Emergent Contact Non-Emergency issues call your: Primary Care Provider Call Non-Emergent contact if: you have a fever, temperature is above 100.5, your pain is not controlled, your pain is worsening, your pain is unusual for you, your pain is concerning you, you have any medication questions other concerns with your health. Call 911 or go directly to the Emergency Department if you experience any of the following: Chest pain, chest tightness, shortness of breath, abdominal pain , lightheadedness, dizziness, gastrointestinal bleeding, or have any other concerns regarding your health. . Past History Medical & Surgical History: (1) Failure to thrive (2) Diarrheal disease (3) Weakness (4) Declining functional status (5) Oral candidiasis (6) Auditory hallucinations (7) Acute paranoia . "Provider Documentation" section prepared by Portia Palacios. . Core Measure Problem Core Measures: None
[2017-03-19] MEDS: DRONABINOL 2.5 MG CAP PO SCH (11:33)
[2017-03-19 12:40] VITALS: BP 113/63; PULSE 70; TEMP 36.7; O2SAT 97
--- NOTE | 2017-03-19 13:01 | Discharge Summary ---
Discharge Summary Date of Service Mar 19, 2017. Discharge Summary Admission Date: Mar 11, 2017 at 16:18 Discharge Date: Mar 19, 2017 Discharge Disposition: [facility] facility Principal Diagnosis: Failure to thrive, diarrheal disease Problems/Secondary Diagnoses: Failure to Thrive Urinary retention- resolved Hx of Mood disorder/ depression psychosis Oral Candidiasis Procedures: CT SCAN OF THE ABDOMEN AND PELVIS WITHOUT CONTRAST 03/11 IMPRESSION: 1. No evidence of bowel obstruction. No evidence of free air 2. Fecal retention suggesting underlying constipation. There is a stool-filled distended rectum measuring 7.9 cm in diameter 3. No evidence of acute diverticulitis 4. Bilateral nephrolithiasis. No ureteral or bladder calculi identified. CHEST 2 VIEWS ROUTINE 03/11/17 FINDINGS: The lungs are clear. Cardiac silhouette is normal in size. No pleural effusions. No pneumothorax. Partially visualized gas-filled borderline distended bowel seen within the upper abdomen. This remains unchanged. IMPRESSION: No significant change compared to the prior study. No acute process. Medication Reconciliation New Medications: Docusate Sodium (Docusate Sodium) 100 Mg Cap 100 MG PO BID for 30 Days, #60 CAP Dronabinol (Dronabinol) 2.5 Mg Cap 2.5 MG PO BID@1100,1600 for 30 Days, #60 CAP Nystatin (Nystatin) 5 Ml Susp 5 ML PO QID for 3 Days, #60 ML Pantoprazole (Pantoprazole Sodium) 40 Mg Tab 40 MG PO QAM for 30 Days, #30 TAB [Enteral Nutrition Formula] () 1 CAN LIQD 1 CAN PO TIDM Continued Medications: Acetaminophen (Tylenol) 325 Mg Tab 650 MG PO Q4 PRN for Pain, TAB Cholecalciferol (Vitamin D3) 1,000 Unit Cap 1000 UNITS PO DAILY Cyanocobalamin (Vitamin B12 500MCG) 500 Mcg Tab 1000 MCG PO DAILY, TAB Famotidine (Pepcid) 20 Mg Tab 20 MG PO DAILY PRN for PRN, TAB Megestrol Acetate (Megestrol Acetate) 40 Mg/1 Ml Susp 10 ML PO BID Risperidone (Risperdal) 4 Mg Tab 4 MG PO HS, TAB Sertraline (Zoloft) 50 Mg Tab 50 MG PO DAILY, TAB Discharge Exam The patient was seen and examined this morning. Pt reports doing fine today. He seems brighter today than before. He has no acute complaints and seems happy about being able to be discharged from the hospital to SNF. Review of Systems: Constitutional: No fever, No chills, No sweats Eyes: No redness, No diplopia ENT: No sore throat, No trouble swallowing Respiratory: No cough, No shortness of breath Cardiovascular: No chest pain, No edema Abdomen: No pain, No nausea, No vomiting Musculoskeletal: No joint pain, No swelling Genitourinary - Male: No hematuria, No dysuria Endocrine: No fatigue Integumentary: No rash, No itch Physical Exam: General Appearance: WD/WN, no apparent distress Eyes: PERRL, EOMI ENT: hearing grossly normal, pharynx normal Neck: supple, no JVD Respiratory/Chest: lungs clear, no respiratory distress, no accessory muscle use Cardiovascular: regular rate, rhythm, no murmur, normal peripheral pulses Abdomen / GI: normal bowel sounds, non tender, no organomegaly Extremities: normal inspection, no calf tenderness, no pedal edema Neurologic/Psychiatric: alert, oriented x 3 Skin: normal color, warm/dry Hospital Course History of Present Illness 76-year-old male presents to the ER with diarrhea from personal custodial poorly the patient is not happy at the personal custodial he's had decreased oral intake. In the ER is found to have a large rectal stool bolus which was removed with enema. Remainder of his evaluation including CT scan abdomen and pelvis CBC and chemistry panel were unremarkable with exception of a mild leukocytosis infectious studies including C. difficile are negative remaining studies are pending at time of presentation patient had mild elevation of BUN/ creatinine are 26 and 1.2. Patient has come pain by his niece, this patient had been our facility April 2016 he was living with his brother when he began having hallucinations and was brought in by police during that admission he had metabolic causes were ruled out and was eventually discharged to inpatient psych facility and then subsequent from that facility to a personal custodial. The niece states that he has been belligerent and strangyamel from most of his family members he cannot return to his former living situation and he has a significant history of alcohol abuse in the past. This niece is his POA both she and the patient are in agreement at the time of presentation but they would like him to be transition to a higher level of care for more support is offered such as a detention facility. Physical Exam Vital Signs Date Time Temp Pulse Resp B/P (MAP) Pulse Ox O2 Delivery O2 Flow Rate FiO2 03/11/17 15:17 69 12 158/72 97 Room Air 03/11/17 14:25 73 03/11/17 13:00 74 122/72 98 Room Air 03/11/17 11:56 67 134/76 96 Room Air 03/11/17 10:36 65 18 132/68 97 Room Air 03/11/17 09:32 97 Room Air 03/11/17 09:26 36.8 77 20 122/56 97 Room Air 03/11/17 09:21 66 General Appearance: no apparent distress, + thin Head: normocephalic, atraumatic Eyes: PERRL, EOMI ENT: + pertinent finding (oral thrush is noted) Neck: supple, no JVD Respiratory/Chest: chest non-tender, lungs clear, normal breath sounds Cardiovascular: regular rate, rhythm, no murmur Abdomen/GI: normal bowel sounds, non tender, soft Back: no CVA tenderness, no muscle spasm, normal range of motion Extremities/Musculoskelatal: normal inspection, no pedal edema, normal range of motion Neurologic/Psych: alert, oriented x 3 (this was answered appropriately) Skin: normal color, warm/dry, no rash Hospital Course 76-year-old male with PMHx of psychosis who presents for personal custodial with functional decline family's request for detention facility consideration Failure to Thrive - Pt with weight loss of >23 lbs - PT/OT on board - Speech consulted - Calorie counts and appetite stimulant transitioned to Marinol. Pt had 1 L fluid given in the ER. Encourage PO intake. cont boost supplementation. - diarrhea resolved at this point: neg c. diff, shiga and salmonella - pt having small bowel movements daily Urinary retention- resolved - Urine culture neg - UA fairly unremarkable - Dc nereida on 03/13 Hx of Mood disorder/ depression - For his psychosis will continue his Risperdal 4 mg HS - Zoloft 50 mg daily - Psych consulted for formal evaluation for Target process completion Oral Candidiasis - Continue nystatin swish and swallow DVT ppx: heparin subq Disposition: CM aware and have discussed with office of aging, target process complete, dc to [facility] Total Time Spent: Greater than 30 minutes This includes examination of the patient, discharge planning, medication reconciliation, and communication with other providers. Discharge Instructions Please refer to the electronic Patient Visit Report (Discharge Instructions) for additional information. Follow-Up Follow up with your Primary Care Provider within 1 week, or physician at facility within 24-48 hours of arrival.
[2017-03-19] MEDS ORDERED: FAMOTIDINE 20 MG TAB PO SCH (21:00)
== END 2017-03-19 14:00 | DRG 641 ==
LOC: EDBD 09:15 → C.EDB 09:17 → C.MS2W 15:49 → ENRESERV 16:09 → OBSVTOIN 16:18 → EDBEDREQ 16:19
PROVIDERS: ADMIT Internal Medicine; ATTEND Internal Medicine Sports Medicine
DX: R62.7 Adult failure to thrive (principal); B37.0 Candidal stomatitis; F32.9 Major depressive disorder, single episode, unspecified; F29 Unspecified psychosis not due to a substance or known physiological condition; R33.9 Retention of urine, unspecified; R19.7 Diarrhea, unspecified; K21.9 Gastro-esophageal reflux disease without esophagitis; Z79.899 Other long term (current) drug therapy